=== PATIENT | male | born 1955 ===

== ENCOUNTER 2016-10-26 15:42 | Emergency (ER) | payer MEDICARE ==
[2016-10-26 15:42] VITALS: BMI 24.3
[2016-10-26 15:58] VITALS: RESP 18
[2016-10-26] MEDS ORDERED: Lidocaine 5% Patch TD STA (16:12)
[2016-10-26] MEDS ORDERED: Lidocaine 5% Patch TD ONE (16:20)
--- NOTE | 2016-10-26 17:18 | RAD ---
PROCEDURE: Radiographs of the Lumbar Spine. HISTORY: Left flank pain COMPARISON: CT abdomen and pelvis from 310 T 2016 FINDINGS: BONES: There is normal alignment of the lumbar vertebral bodies. Lumbar lordosis is maintained. Vertebral bodies are normal in height. There is no acute fracture, spondylolysis or spondylolisthesis. There is mild diffuse bone demineralization. DISC SPACES: There is mild multilevel degenerative disc disease with anterior osteophytes, reduced disc heights and multilevel facet arthropathy, worse at L5-S1. OTHER FINDINGS: There is a 6 mm calcification in the left mid abdomen at the level of the transverse process of L3 vertebral body IMPRESSION: 1. 6 mm calcification in the left mid abdomen could represent soft tissue calcification however ureteral cannot be entirely excluded. If there is a persistent clinical concern, a CT scan may be performed. 2. No acute fracture, spondylolysis or spondylolisthesis. Mild degenerative disc disease at L5-S1.
--- NOTE | 2016-10-26 17:56 | C.PDOC ---
History Of Present Illness 60 y/o male presents to ED with complaints of acute onsite back pain since last night. Pain is described as a shooting pain mainly on left side radiating to buttocks with a pain rate of 10/10 increased with movement. Patient followed up with PMD who recommended LS spine films and gave prescriptions but because of severe pain patient came to ED for evaluation. Patient denies LUCERO, N/V/D, hematuria, dysuria or any other complaints at this time. Time Seen by Provider: 10/26/16 16:04 Chief Complaint (Nursing): Back Pain History Per: Patient History/Exam Limitations: no limitations Onset/Duration Of Symptoms: Hrs Current Symptoms Are (Timing): Still Present Quality Of Discomfort: Dull Exacerbating Factor(s): Movement Past Medical History Reviewed: Historical Data, Nursing Documentation, Vital Signs Vital Signs: Last Vital Signs Temp 97.5 F L 10/26/16 15:50 Pulse 78 10/26/16 15:50 Resp 18 10/26/16 15:50 BP 146/76 10/26/16 15:50 Pulse Ox 99 10/26/16 18:01 - Medical History PMH: Dementia (early onset), Diabetes, Hypercholesterolemia, Hyperlipidemia Family History: States: Unknown Family Hx - Social History Hx Alcohol Use: Yes Hx Substance Use: No - Immunization History Hx Tetanus Toxoid Vaccination: No Hx Influenza Vaccination: Yes Hx Pneumococcal Vaccination: No Review Of Systems Except As Marked, All Systems Reviewed And Found Negative. Constitutional: Negative for: Fever, Chills Cardiovascular: Negative for: Chest Pain Gastrointestinal: Negative for: Nausea, Vomiting, Diarrhea Genitourinary: Negative for: Dysuria, Hematuria Skin: Negative for: Rash Neurological: Negative for: Headache Physical Exam - Physical Exam Appears: Non-toxic, No Acute Distress Skin: Normal Color, Warm Head: Atraumatic, Normacephalic Oral Mucosa: Moist Neck: Normal ROM Cardiovascular: Rhythm Regular, No Murmur Respiratory: Normal Breath Sounds, No Rales, No Rhonchi, No Wheezing Gastrointestinal/Abdominal: Soft, No Tenderness, No Guarding, No Rebound Back: No Decreased ROM, Paraspinal Tenderness (Left ) Extremity: Normal ROM, Capillary Refill (<2 seconds) Neurological/Psych: Oriented x3, Normal Speech Gait: Steady ED Course And Treatment O2 Sat by Pulse Oximetry: 99 (RA) Pulse Ox Interpretation: Normal Medical Decision Making Medical Decision Making: Patient treated with medication and Lidoderm patch, will be re-evaluated with possible D/C UA will be sent out to rule out renal colic Patient with 3+ blood in urine/. Will endorse to oncoming attending and request CT and labs. Disposition Counseled Patient/Family Regarding: Studies Performed, Diagnosis - Disposition Disposition Time: 18:30 Condition: STABLE - Clinical Impression Clinical Impression: Low back pain - PA / STUDY MANAGER / Resident Statement MD/DO has reviewed & agrees with the documentation as recorded. MD/DO has examined the patient and agrees with the treatment plan. - Scribe Statement The provider has reviewed the documentation as recorded by the Archie Christianson All medical record entries made by the Archie were at my direction and personally dictated by me. I have reviewed the chart and agree that the record accurately reflects my personal performance of the history, physical exam, medical decision making, and the department course for this patient. I have also personally directed, reviewed, and agree with the discharge instructions and disposition. Physician Patient Turnover Patient Signed Over To: Renato Briggs Handoff Comments: back pain, r/o renal colic
[2016-10-26 18:19] LABS: RBC URINE 21 /hpf (0-3); URINE BILIRUBIN NEGATIVE (NEGATIVE); URINE BLOOD 3+ (NEGATIVE); URINE COLOR Yellow (YELLOW); URINE GLUCOSE (UA) NORMAL (Normal); URINE KETONE 1+ mg/dL (NEGATIVE); URINE LEUKOCYTE ESTERASE NEG Leu/uL (Negative); URINE PROTEIN NEGATIVE (NEGATIVE); URINE UROBILINOGEN NORMAL mg/dL (0.2-1.0); WBC URINE 9 /hpf (0-5)
[2016-10-26] MEDS ORDERED: Sodium Chloride 0.9% 1,000 ML IV ONE (18:23)
[2016-10-26] MEDS ORDERED: Sodium Chloride 0.9% 1,000 ML ONE (19:11)
[2016-10-26] MEDS ORDERED: Morphine 4 MG/ML VIAL ONE (19:11)
[2016-10-26 19:12] LABS: BASO % 0.2 % (0.0-2.0); HEMATOCRIT 37.5 % (35.0-51.0); LYMPH # 1.1 K/uL (1.0-4.3); LYMPH % 7.7 % (20.0-40.0); MEAN CELL VOLUME 96.9 fL (80.0-94.0); MEAN CORPUSCULAR HEMOGLOBIN 33.3 pg (27.0-31.0); MEAN CORPUSCULAR HGB CONC 34.4 g/dL (33.0-37.0); MEAN PLATELET VOLUME 8.9 fL (7.2-11.7); MONO # 0.9 K/uL (0.0-0.8); MONO % 6.5 % (0.0-10.0); PLATELET COUNT 195 K/uL (130-400)
[2016-10-26 19:27] LABS: CHLORIDE 106 mmol/L (98-107)
[2016-10-26 19:28] LABS: SODIUM 138 mmol/L (132-148)
[2016-10-26 19:29] LABS: POTASSIUM 4.2 mmol/L (3.6-5.2); WHITE BLOOD COUNT 14.2 K/uL (4.8-10.8)
[2016-10-26 19:31] LABS: ALB/GLOB RATIO 1.1 (1.0-2.1); ALKALINE PHOSPHATASE 84 U/L (38-126); ALT/SGPT 25 U/L (21-72); AST/SGOT 28 U/L (17-59); BLOOD UREA NITROGEN 16 mg/dL (9-20); CARBON DIOXIDE 23 mmol/L (22-30); GFR AFRICAN-AMERICAN > 60; GLUCOSE,RANDOM 129 mg/dL (75-110); TOTAL PROTEIN 7.6 g/dL (6.3-8.3)
[2016-10-26 19:32] LABS: CALCIUM 8.9 mg/dl (8.6-10.4)
[2016-10-26 20:03] LABS: NEUTROPHIL 84 % (50-75); REACTIVE LYMPHOCYTES 3 % (0-0); TOTAL CELLS COUNTED 100
[2016-10-26 20:18] VITALS: O2SAT 98
[2016-10-26 21:00] VITALS: BP 148/85; PULSE 81; TEMP 97.9
--- NOTE | 2016-10-27 09:08 | CT ---
PROCEDURE: CT Abdomen and Pelvis without intravenous contrast HISTORY: Abdominal pain COMPARISON: 07/31/2015 TECHNIQUE: Technique. Contrast Dose: CT scan of the abdomen and pelvis was performed without administration of intravenous contrast. Oral contrast was not administered. Coronal and sagittal reformatted images were obtained. Radiation dose: Total exam DLP = 363.53 mGy-cm. This CT exam was performed using one or more of the following dose reduction techniques: Automated exposure control, adjustment of the mA and/or kV according to patient size, and/or use of iterative reconstruction technique. FINDINGS: LOWER THORAX: There is subsegmental atelectasis in the right lower lobe. The left lung base is clear. LIVER: The liver is normal in size. No gross lesion or ductal dilatation. GALLBLADDER AND BILE DUCTS: There are no calcified gallstones. PANCREAS: The pancreas is normal in size. No gross lesion or ductal dilatation. SPLEEN: Spleen is normal in size. ADRENALS: Unremarkable. No mass. KIDNEYS AND URETERS: In the right kidney is normal in size without hydronephrosis. There is a punctate nonobstructing stone in the right interpolar region. There is a 8 x 6 mm obstructing stone in the left proximal ureteral with resultant moderate hydronephrosis and moderate dilatation of the proximal ureteral, also noted is edema and enlargement of the left kidney and significant perinephric fat stranding. There is coarse calcification in the left lower pole which could represent calcification in a cyst or calyceal diverticulum. VASCULATURE: No aortic aneurysm. BOWEL: The small bowel loops are normal in caliber. There is moderate amount of stool in the colon. There is scattered colonic diverticulosis without CT evidence for acute diverticulitis. APPENDIX: Normal appendix. PERITONEUM: No free fluid. No free air. LYMPH NODES: No enlarged lymph nodes. BLADDER: Partially distended. REPRODUCTIVE: Unremarkable. BONES: No acute fracture. Diffuse bone demineralization and mild degenerative disc disease. OTHER FINDINGS: A right-sided ventriculoperitoneal shunt catheter terminates in the left hemipelvis. IMPRESSION: 1. Moderate left obstructive uropathy resulting from a 8 x 6 mm stone in the left proximal ureteral. 2. Punctate nonobstructing stone in the interpolar region of the right kidney. 3. Colonic diverticulosis without CT evidence for acute diverticulitis. A preliminary report was provided by [facility].
== END 2016-10-26 21:00 | disposition home or self-care (01) ==
LOC: C.ER 15:42
DX: N13.2 Hydronephrosis with renal and ureteral calculous obstruction (principal); M54.5 Low back pain
CPT/HCPCS: 72100; 74176; 80053; 81001; 85025; 96361; 96374; 99285; J2270; J7040

== ENCOUNTER 2016-10-30 12:47 | Day surgery (SDC) | payer MEDICARE ==
[2016-10-30 12:53] VITALS: BMI 25.5
[2016-10-30] MEDS ORDERED: Propofol 10 mg/ml Inj (20 ML) ONE ×3 (15:09→15:37)
[2016-10-30] MEDS ORDERED: Lactated Ringer's 1,000 ML IV ONE (15:10)
[2016-10-30] MEDS ORDERED: Ciprofloxacin 400mg/200ml D5W 400 MG/200 ML BAG IVPB ONE (15:12)
[2016-10-30] MEDS ORDERED: Iohexol 240 (50 ml) ONE (15:12)
[2016-10-30] MEDS ORDERED: HYDROmorphone 0.5 mg/0.5 ml ISec IVP PRN (15:46)
[2016-10-30 17:41] VITALS: BP 123/72; PULSE 88; RESP 20; TEMP 97.8; O2SAT 98
--- NOTE | 2016-10-30 19:33 | OP ---
PROCEDURE DATE: 10/30/2016 PREOPERATIVE DIAGNOSES: Acute left renal colic secondary to left obstructing ureteral calculus. POSTOPERATIVE DIAGNOSES: Acute left renal colic secondary to left obstructing ureteral calculus. PROCEDURE PERFORMED: Cystoscopy, left ureteroscopy, and double-J stent placement. DESCRIPTION OF PROCEDURE: Under general anesthesia, the patient was placed on the operating table in dorsal lithotomy position. The area of the groin was draped and prepped in a sterile manner. Using a short ureteroscope, I entered into the bladder atraumatically, identified the left ureteral orifice and over a floppy tip Glidewire, I advanced the ureteroscope to the level of the obstructing stone. It was in the middle portion of the ureter. Full length of the ureteroscope was in. The stone was very jagged and quite large. Appears to be almost 8 or 9 mm in size. At this time, realizing that t his is not going to be a stone for extraction, I then, under fluoroscopy, removed the ureteroscope, l eft the indwelling guidewire in place and over that guidewire, I placed a 6-Ghanaian multilength double -J stent. Once under good position fluoroscopically, then the instrumentation was removed. The yasmine ent then was taken from the operating room in good condition. Destinee Villalba MD cc: 48 TT: 10/30/2016 19:32:30 sarai
--- NOTE | 2016-10-31 08:55 | DS ---
This patient was admitted today at [facility] for elective J stent placement for a left ureteral calculus. The patient underwent the procedure well. In recovery room, he is stable. He will be di scharged home today. Follow up in my office tomorrow for future arrangements to be made at the [facility] for lithotripsy of left hydroureteronephrosis secondary to stone. Destinee Villalba MD cc: 48 TT: 10/31/2016 08:54:24 en
--- NOTE | 2016-11-01 09:12 | RAD ---
HISTORY: Left ureteral calculi COMPARISON: None TECHNIQUE: Total fluoroscopic time utilized during the procedure: 18.3 seconds ; 1852 mGy cm 2 FINDINGS: Submitted images from the current procedure: 2 Please refer to the physician's notes performing the procedure. IMPRESSION: Less than 1 hour fluoroscopic time utilized during performance of the procedure
== END 2016-10-30 18:05 | disposition home or self-care (01) ==
LOC: C.SDS 12:47
PROVIDERS: ATTEND Urology
DX: N20.0 Calculus of kidney (principal); N20.1 Calculus of ureter
CPT/HCPCS: 52332; 76000; 82948; C1769; C2617; J7120

== ENCOUNTER 2018-03-21 06:15 | Inpatient (IN) | payer MEDICARE ==
[2018-03-21 06:15] VITALS: BMI 25.0
[2018-03-21] MEDS ORDERED: Aspirin 325 mg EC Tablets PO STA (06:46)
--- NOTE | 2018-03-21 06:47 | C.PDOC ---
History Of Present Illness 62 year old male presents to the ER with a complaint of sternal chest pain that woke him from sleep. Patient states the pain is digitally reproducible, denies any trauma or heavy lifting the past 3 days. 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 Patient has been here in the past for ETOH abuse before, claims he drinks 2 beers a night. Denies fever, chills, or SOB. <Collin Irving - Last Filed: 03/21/18 06:53> History Per: Patient History/Exam Limitations: no limitations Onset/Duration Of Symptoms: Days (3) Current Symptoms Are (Timing): Still Present Associated Symptoms: denies: Nausea, Dyspnea, Diaphoresis, Syncope Modifying Factors: None Exacerbating Factors: Other (Digitally reproducible) Alleviating Factors: None Recent travel outside of the [place]: No <Collin Irving - Last Filed: 03/21/18 06:53> <Tuan Gibbs - Last Filed: 03/21/18 08:13> Time Seen by Provider: 03/21/18 06:31 Chief Complaint (Nursing): Chest Pain Past Medical History Reviewed: Historical Data, Nursing Documentation, Vital Signs Vital Signs: Last Vital Signs Temp 97.6 F 03/21/18 06:19 Pulse 88 03/21/18 06:19 Resp 20 03/21/18 06:19 BP 169/103 H 03/21/18 06:19 Pulse Ox 100 03/21/18 06:19 - Medical History PMH: Dementia (early onset), Diabetes, HTN, Hypercholesterolemia, Hyperlipidemia, Kidney Stones Denies: Chronic Kidney Disease Family History: States: Unknown Family Hx - Social History Hx Alcohol Use: Yes Hx Substance Use: No - Immunization History Hx Tetanus Toxoid Vaccination: No Hx Influenza Vaccination: Yes Hx Pneumococcal Vaccination: No <Collin Irving - Last Filed: 03/21/18 06:53> Vital Signs: Last Vital Signs Temp 97.6 F 03/21/18 06:19 Pulse 88 03/21/18 06:19 Resp 20 03/21/18 06:19 BP 169/103 H 03/21/18 06:19 Pulse Ox 100 03/21/18 06:53 <Tuan Gibbs - Last Filed: 03/21/18 08:13> Review Of Systems Constitutional: Negative for: Fever, Chills Cardiovascular: Positive for: Chest Pain. Negative for: Palpitations Respiratory: Negative for: Cough, Shortness of Breath Gastrointestinal: Negative for: Nausea, Vomiting Neurological: Negative for: Weakness, Numbness <Collin Irving Yaniv Last Filed: 03/21/18 06:53> Physical Exam - Physical Exam Appears: Non-toxic, Other (Odd affect) Skin: Normal Color, Warm, Dry Head: Atraumatic, Normacephalic Eye(s): bilateral: Normal Inspection Oral Mucosa: Moist Neck: Normal, No Midline Cervical Tenderness, No Paracervical Tenderness, Supple Chest: Tenderness (Digitally reproducible bilateral sternal areas) Cardiovascular: Rhythm Regular Respiratory: Normal Breath Sounds, No Rales, No Rhonchi, No Wheezing Gastrointestinal/Abdominal: Soft, No Tenderness Back: No CVA Tenderness Extremity: Normal ROM (x4) Neurological/Psych: Oriented x3, Normal Speech Gait: Steady <Collin Irving Yaniv Last Filed: 03/21/18 06:53> ED Course And Treatment - Laboratory Results Result Diagrams: 03/21/18 06:48 ECG: Interpreted By Me ECG Rhythm: Sinus Rhythm ECG Interpretation: Normal Rate From EC O2 Sat by Pulse Oximetry: 100 (Room air) Pulse Ox Interpretation: Normal Progress Note: ice pack, toradol <Collin Irving Last Filed: 03/21/18 06:53> - Laboratory Results Result Diagrams: 03/21/18 06:48 03/21/18 07:00 <Tuan Gibbs - Last Filed: 03/21/18 08:13> Medical Decision Making Medical Decision Making: normal ekg cp is digitally reproducable ice pack and toradol IV ? anxiety vs etoh w/d librium PO given ? cognitive disorder, R craniotomy/shunt <Collin Irving Last Filed: 03/21/18 06:53> Medical Decision Makin yr old male w/ no cardiac RF p/w chest pain reproducible to palpation. Pt notes etoh use, no signs of withdrawal on my exam. Cognitively pt is AOx3. Heart Score: Age: 1 RF: 2 EK Story: 0 Troponin: pending EK, NSR, No stemi XR: Unremarkable Pending troponin 2002 cp started at 0300 per pt. Given no previous Echo / stress will seek obs for likely w/u. 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 iSdhu: given borderline heart score accepts admission to obs <Tuan Gibbs - Last Filed: 03/21/18 08:13> Disposition <Collin Irving - Last Filed: 03/21/18 06:53> - Disposition Disposition Time: 08:12 <Tuan Gibbs - Last Filed: 03/21/18 08:13> - Disposition Condition: GOOD Forms: [employer] (Frisian) - Clinical Impression Clinical Impression: Chest pain - Scribe Statement The provider has reviewed the documentation as recorded by the Scribe Greg Jacques All medical record entries made by the Scribe were at my direction and pers onally dictated by me. I have reviewed the chart and agree that the record accurately reflects my personal performance of the history, physical exam, medical decision making, and the department course for this patient. I have also personally directed, reviewed, and agree with the discharge instructions and disposition. <Collin Irving - Last Filed: 03/21/18 06:53> Physician Patient Turnover Patient Signed Over To: Tuan Gibbs Handoff Comments: f/u w/u and dispo appropriately <Collin Irving - Last Filed: 03/21/18 06:53>
[2018-03-21 06:51] LABS: BASO % 0.3 % (0.0-2.0); EOS # 0.1 K/uL (0.0-0.7); LYMPH # 0.9 K/uL (1.0-4.3); LYMPH % 10.5 % (20.0-40.0); MEAN CELL VOLUME 100.5 fL (80.0-94.0); MEAN CORPUSCULAR HEMOGLOBIN 34.9 pg (27.0-31.0); MEAN CORPUSCULAR HGB CONC 34.7 g/dL (33.0-37.0); MEAN PLATELET VOLUME 9.4 fL (7.2-11.7); MONO # 0.5 K/uL (0.0-0.8); MONO % 5.4 % (0.0-10.0); NEUT % 82.8 % (50.0-75.0); RBC 3.73 Mil/uL (4.40-5.90); RED CELL DISTRIBUTION WIDTH 13.3 % (11.5-14.5); WHITE BLOOD COUNT 8.5 K/uL (4.8-10.8)
[2018-03-21 07:19] LABS: ALB/GLOB RATIO 1.2 (1.0-2.1); ALBUMIN 3.4 g/dL (3.5-5.0); ALT/SGPT 24 U/L (21-72); AST/SGOT 22 U/L (17-59); BLOOD UREA NITROGEN 14 mg/dL (9-20); CALCIUM 7.7 mg/dl (8.6-10.4); GFR NON-AFRICAN AMERICAN > 60
[2018-03-21 07:31] LABS: B-TYPE NATRIURETIC PEPTIDE 298 pg/mL (0-900)
--- NOTE | 2018-03-21 08:59 | RAD ---
Date of service: 03/21/2018 PROCEDURE: CHEST RADIOGRAPH, 1 VIEW HISTORY: SOB COMPARISON: None available. FINDINGS: LUNGS: The lungs are well inflated and clear. PLEURA: No pneumothorax or pleural effusion. CARDIOVASCULAR: The heart is normal in size. No aortic atherosclerotic calcifications present. OSSEOUS STRUCTURES: Within normal limits for the patient's age. VISUALIZED UPPER ABDOMEN: Normal. OTHER FINDINGS: Right-sided ventriculoperitoneal shunt catheter overlies the lower neck and hemithorax. IMPRESSION: No active pulmonary disease.
[2018-03-21] MEDS ORDERED: Pneumococcal 23-Valent Vaccine IM ONE (10:00)
[2018-03-21 13:04] LABS: CK-MB 11.4 ng/mL (0.0-3.38)
[2018-03-21] MEDS: (Novolin R) Insulin Human Regular 100 units/ml vial SC SCH ×3 (13:06→21:42)
[2018-03-21 13:44] LABS: TROPONIN I 0.759 ng/mL (0.00-0.120)
[2018-03-21 16:30] LABS: PROTHROMBIN TIME 10.9 SECONDS (9.7-12.2)
[2018-03-21] MEDS: Heparin25000 units/250ml 1/2NS 25,000 UNITS/250 ML BAG IV PRN (16:46)
[2018-03-21 21:12] LABS: CK-MB 35.8 ng/mL (0.0-3.38); TROPONIN I 7.24 ng/mL (0.00-0.120)
--- NOTE | 2018-03-21 21:56 | CP.PCM.HP ---
Past Patient History - Past Medical History & Family History Past Medical History?: Yes - Past Social History Smoking Status: Never Smoked - CARDIAC Hx Hypercholesterolemia: Yes Hx Hypertension: Yes - PULMONARY Hx Respiratory Disorders: No - NEUROLOGICAL Hx Dementia: Yes (early onset) - HEENT Hx HEENT Problems: No - RENAL Hx Chronic Kidney Disease: No Hx Kidney Stones: Yes - ENDOCRINE/METABOLIC Hx Endocrine Disorders: Yes Hx Diabetes Mellitus Type 2: Yes - HEMATOLOGICAL/ONCOLOGICAL Hx Blood Disorders: No - INTEGUMENTARY Hx Dermatological Problems: No - MUSCULOSKELETAL/RHEUMATOLOGICAL Hx Musculoskeletal Disorders: No - GASTROINTESTINAL Hx Gastrointestinal Disorders: No - GENITOURINARY/GYNECOLOGICAL Hx Genitourinary Disorders: No - PSYCHIATRIC Hx Substance Use: No - SURGICAL HISTORY Hx Surgeries: Yes Other/Comment: 2009-shunt brain,november-2016 cystoscopy,stent placement with kidney stones,nephrolithiasis - ANESTHESIA Hx Anesthesia: Yes Hx Anesthesia Reactions: No Hx Malignant Hyperthermia: No Meds Allergies/Adverse Reactions: Allergies Allergy/AdvReac Type Severity Reaction Status Date / Time amoxicillin [From Augmentin] Allergy Verified 03/21/18 06:25 clavulanic acid Allergy Verified 03/21/18 06:25 [From Augmentin] Tetracyclines Allergy Verified 03/21/18 06:25 Results - Vital Signs Recent Vital Signs: Last Vital Signs Temp 97.5 F L 03/21/18 15:10 Pulse 67 03/21/18 17:02 Resp 20 03/21/18 15:10 BP 160/90 H 03/21/18 18:01 Pulse Ox 98 03/21/18 17:02 - Labs Result Diagrams: 03/21/18 06:48 03/21/18 07:00 Labs: Laboratory Results - last 24 hr 03/21/18 03/21/18 03/21/18 06:25 06:48 07:00 WBC 8.5 RBC 3.73 L Hgb 13.0 Hct 37.5 MCV 100.5 H D MCH 34.9 H MCHC 34.7 RDW 13.3 Plt Count 190 MPV 9.4 Neut % (Auto) 82.8 H Lymph % (Auto) 10.5 L [place] % (Auto) 5.4 Eos % (Auto) 1.0 Baso % (Auto) 0.3 Neut # (Auto) 7.0 Lymph # (Auto) 0.9 L [place] # (Auto) 0.5 Eos # (Auto) 0.1 Baso # (Auto) 0.0 PT INR APTT Sodium 138 Potassium 4.1 Chloride 107 Carbon Dioxide 25 Anion Gap 9 L BUN 14 Creatinine 0.5 L Est GFR ( Amer) > 60 Est GFR (Non-Af Amer) > 60 POC Glucose (mg/dL) 166 H Random Glucose 157 H Hemoglobin A1c Calcium 7.7 L Total Bilirubin 0.3 AST 22 ALT 24 Alkaline Phosphatase 68 Total Creatine Kinase CK-MB (Mass) Troponin I 0.0550 NT-Pro-B Natriuret Pep 298 Total Protein 6.3 Albumin 3.4 L Globulin 2.9 Albumin/Globulin Ratio 1.2 Triglycerides Cholesterol LDL Cholesterol Direct HDL Cholesterol Alcohol, Quantitative < 10 03/21/18 03/21/18 03/21/18 11:37 12:14 12:14 WBC RBC Hgb Hct MCV MCH MCHC RDW Plt Count MPV Neut % (Auto) Lymph % (Auto) [place] % (Auto) Eos % (Auto) Baso % (Auto) Neut # (Auto) Lymph # (Auto) [place] # (Auto) Eos # (Auto) Baso # (Auto) PT INR APTT Sodium Potassium Chloride Carbon Dioxide Anion Gap BUN Creatinine Est GFR ( Amer) Est GFR (Non-Af Amer) POC Glucose (mg/dL) 194 H Random Glucose Hemoglobin A1c 6.6 H Calcium Total Bilirubin AST ALT Alkaline Phosphatase Total Creatine Kinase 156 CK-MB (Mass) 11.4 H Troponin I 0.7590 H* NT-Pro-B Natriuret Pep Total Protein Albumin Globulin Albumin/Globulin Ratio Triglycerides 248 H Cholesterol 235 H LDL Cholesterol Direct 154 H HDL Cholesterol 56 Alcohol, Quantitative 03/21/18 03/21/18 03/21/18 16:12 16:19 20:05 WBC RBC Hgb Hct MCV MCH MCHC RDW Plt Count MPV Neut % (Auto) Lymph % (Auto) [place] % (Auto) Eos % (Auto) Baso % (Auto) Neut # (Auto) Lymph # (Auto) [place] # (Auto) Eos # (Auto) Baso # (Auto) PT 10.9 INR 1.0 APTT 27 Sodium Potassium Chloride Carbon Dioxide Anion Gap BUN Creatinine Est GFR ( Amer) Est GFR (Non-Af Amer) POC Glucose (mg/dL) 116 H Random Glucose Hemoglobin A1c Calcium Total Bilirubin AST ALT Alkaline Phosphatase Total Creatine Kinase 379 H CK-MB (Mass) 35.8 H Troponin I 7.2400 H* NT-Pro-B Natriuret Pep Total Protein Albumin Globulin Albumin/Globulin Ratio Triglycerides Cholesterol LDL Cholesterol Direct HDL Cholesterol Alcohol, Quantitative 03/21/18 21:21 WBC RBC Hgb Hct MCV MCH MCHC RDW Plt Count MPV Neut % (Auto) Lymph % (Auto) [place] % (Auto) Eos % (Auto) Baso % (Auto) Neut # (Auto) Lymph # (Auto) [place] # (Auto) Eos # (Auto) Baso # (Auto) PT INR APTT Sodium Potassium Chloride Carbon Dioxide Anion Gap BUN Creatinine Est GFR ( Amer) Est GFR (Non-Af Amer) POC Glucose (mg/dL) 153 H Random Glucose Hemoglobin A1c Calcium Total Bilirubin AST ALT Alkaline Phosphatase Total Creatine Kinase CK-MB (Mass) Troponin I NT-Pro-B Natriuret Pep Total Protein Albumin Globulin Albumin/Globulin Ratio Triglycerides Cholesterol LDL Cholesterol Direct HDL Cholesterol Alcohol, Quantitative
--- NOTE | 2018-03-21 22:35 | PCM.RRT ---
<KaylynnTana Oswald - Last Filed: 03/21/18 22:45> FMD TEACHER Nurses Assessment - Situation Date: 03/21/18 Time FMD TEACHER was called: 21:18 FMD TEACHER Responder Arrival Time:: 21:19 FMD TEACHER Location:: Med/Surg Room Number: 571 FMD TEACHER Reason for Call: Chest Pain FMD TEACHER Called By: RN - IV IV Inserted during FMD TEACHER?: No - Respiratory FMD TEACHER Delivery Method: Nasal Cannula @L/min Oxygen Flow Rate: 2 Received Nebulizer Treatments: No Was the Patient Ventilated with Bag/Mask 100% O2?: No Secretions Suctioned?: No Was the Patient Intubated?: No Was the Patient Placed on a Ventilator?: No - Medication Medications Administered During FMD TEACHER: none - Diagnostic Test Ordered EKG: Yes Chest X-Ray: No CT Scan: No CPR started during FMD TEACHER?: No - Vital Signs Vital Signs: Rapid Response Vital Sign Blood Pressure 160/81 Pulse Rate 89 Respiratory Rate 18 Oxygen Saturation 97 - [place] Coma Scale Coma Scale Eye Opening: Spontaneous Coma Scale Motor: Obeys Commands Movement Coma Scale Verbal: Oriented Coma Scale Total: 15 - Time FMD TEACHER Ended Time FMD TEACHER Ended: 21:30 - Recommendations Notifications: Attending Physician, Consultations - Respiratory Oxygen Delivery Method: Nasal Cannula @L/min Oxygen Flow Rate: 2 - Constitutional Appears: Non-toxic, No Acute Distress - Head Head Exam: ATRAUMATIC, NORMOCEPHALIC - Eyes Eye Exam: EOMI, PERRL - Respiratory Exam Respiratory Exam: Clear to Ausculation Bilateral, NORMAL BREATHING PATTERN. absent: Rales, Rhonchi, Wheezes - Cardiovascular Exam Cardiovascular Exam: Irregular Rhythm, REGULAR RHYTHM, +S1, +S2 - GI/Abdominal Exam GI & Abdominal Exam: Soft, Normal Bowel Sounds. absent: Tenderness - Neurological Exam Neurological Exam: Alert, Awake, Oriented x3 - Extremities Exam Extremities Exam: Full ROM, Normal Capillary Refill, Normal Inspection Plan - Assessment of Findings&Treatment Plan FMD TEACHER called by nursing per Dr. Medeiros via telephone @ 2117 for elevated CHERIE: 0.759->7.42. Patient was already on heparin drip, beta clifton, ASA, statin. Repeat EKG was stable from previous. Discussed with Dr. Van, button breaker operator; will transfer to ICU per Dr. Medeiros. For cardiac cath on 03/23. FMD TEACHER ended 2125. <Anguiano,Adrian J - Last Filed: 03/22/18 02:23> FMD TEACHER Nurses Assessment - Vital Signs Vital Signs: Rapid Response Vital Sign Blood Pressure 160/81 Pulse Rate 89 Respiratory Rate 18 Oxygen Saturation 97 Attending/Attestation - Attestation I have personally seen and examined this patient.: Yes I have fully participated in the care of the patient.: Yes I have reviewed all pertinent clinical information, including history, physical exam and plan: Yes Notes (Text): 03/22/18 02:20 This patient was seen and examined at the time of the FMD TEACHER with resident Dr. Chaidez. Troponin elevation. Cardiology Dr. Medeiros was made aware. Heparin Drip was already running at the time of FMD TEACHER. Patient resting comfortably and complained of substernal chest pain, nonradiating, and unable to describe the pain to me. NO associated SOB or paresthesias. Dr. Chaidez spoke with Dr. Van covering the ICU and patient to be transferred to the ICU for closer monitoring. Informed by patient Nurse that Dr. Medeiros is planning for Cardiac Catheterization for this Saturday03/24/18. Patient was made aware and procedure explained to him and he expressed understanding. Adrian Anguiano D.O.
[2018-03-21] MEDS ORDERED: Nitroglycerin 2% Ointment Foilpak UD TOP STA (23:12)
--- NOTE | 2018-03-21 23:36 | CP.PCM.CON ---
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 This morning he came with pain 9-10, with gradually improved to 3-4 in the hospital and the troponins gradually sarah beth. 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 Patient already on ASA, plavix, heparin drip, statin, and betablocker. Patient's discomfort 2-3 out of 10. EKG no acute ST-T changes. 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 Family Mom of [place] age 70, father, had heart issues, on brother had CO but has h/o smoking Social works intermittently, denies smoking, illicit drugs, drinks beers 10-12 oz 2 beers 3-4 times/wk Meds reviewed Review of Systems - Review of Systems All systems: reviewed and no additional remarkable complaints except (HPI) Past Patient History - Past Medical History & Family History Past Medical History?: Yes - Past Social History Smoking Status: Never Smoked Alcohol: < 2 Drinks/Day Home Situation {Lives}: With Family - CARDIAC Hx Hypercholesterolemia: Yes Hx Hypertension: Yes - PULMONARY Hx Respiratory Disorders: No - NEUROLOGICAL Hx Dementia: Yes (early onset) - HEENT Hx HEENT Problems: No - RENAL Hx Chronic Kidney Disease: No Hx Kidney Stones: Yes - ENDOCRINE/METABOLIC Hx Endocrine Disorders: Yes Hx Diabetes Mellitus Type 2: Yes - HEMATOLOGICAL/ONCOLOGICAL Hx Blood Disorders: No - INTEGUMENTARY Hx Dermatological Problems: No - MUSCULOSKELETAL/RHEUMATOLOGICAL Hx Musculoskeletal Disorders: No - GASTROINTESTINAL Hx Gastrointestinal Disorders: No - GENITOURINARY/GYNECOLOGICAL Hx Genitourinary Disorders: No - PSYCHIATRIC Hx Substance Use: No - SURGICAL HISTORY Hx Surgeries: Yes Other/Comment: 2009-shunt brain,november-2017 cystoscopy,stent placement with kidney stones,nephrolithiasis - ANESTHESIA Hx Anesthesia: Yes Hx Anesthesia Reactions: No Hx Malignant Hyperthermia: No Meds Allergies/Adverse Reactions: Allergies Allergy/AdvReac Type Severity Reaction Status Date / Time amoxicillin [From Augmentin] Allergy Verified 03/21/18 06:25 clavulanic acid Allergy Verified 03/21/18 06:25 [From Augmentin] Tetracyclines Allergy Verified 03/21/18 06:25 - Medications Medications: Current Medications Aspirin (Ecotrin) 81 mg PO DAILY [facility] Clopidogrel Bisulfate (Plavix) 75 mg PO DAILY [facility] Docusate Sodium (Colace) 100 mg PO BID [facility] Last Admin: 03/21/18 17:39 Dose: 100 mg Donepezil HCl (Aricept) 10 mg PO DAILY [facility] Glipizide (Glucotrol) 10 mg PO ACB [facility] Heparin Sodium/Sodium Chloride (Heparin 31634 Units/250ml 1/2 Normal Saline) 25,000 units in 250 mls @ 8.981 mls/hr IV .Q24H PRN; Protocol PRN Reason: PROTOCOL Last Admin: 03/21/18 16:46 Dose: 12 units/kg/hr, 8.981 mls/hr Insulin Human Regular (Novolin R) 0 unit SC ACHS [facility]; Protocol Last Admin: 03/21/18 21:42 Dose: Not Given Lamotrigine (Lamictal) 25 mg PO BID [facility] Last Admin: 03/21/18 17:39 Dose: 25 mg Memantine (Namenda) 10 mg PO BID [facility] Metformin HCl (Glucophage) 1,000 mg PO BIDCC [facility] Last Admin: 03/21/18 17:39 Dose: 1,000 mg Metoprolol Tartrate (Lopressor) 12.5 mg PO BID [facility] Last Admin: 03/21/18 17:39 Dose: 12.5 mg Rosuvastatin Calcium (Crestor) 20 mg PO HS [facility] Last Admin: 03/21/18 21:53 Dose: 20 mg Physical Exam - Additional Findings Additional findings: * HEENT JOHAN, shunt could be felt on the right side with prior swift of marty holes * Neck Supple * Chest Clear * CVS Regular, no gallop or rub * PA soft, nt bs present * Ext no edema, varicose veins on the right knee, left leg * Results - Vital Signs Recent Vital Signs: Last Vital Signs Temp 97.5 F L 03/21/18 15:10 Pulse 67 03/21/18 17:02 Resp 20 03/21/18 15:10 BP 160/90 H 03/21/18 18:01 Pulse Ox 98 03/21/18 17:02 - Labs Result Diagrams: 03/21/18 06:48 03/21/18 07:00 Labs: Laboratory Results - last 24 hr 03/21/18 03/21/18 03/21/18 06:25 06:48 07:00 WBC 8.5 RBC 3.73 L Hgb 13.0 Hct 37.5 MCV 100.5 H D MCH 34.9 H MCHC 34.7 RDW 13.3 Plt Count 190 MPV 9.4 Neut % (Auto) 82.8 H Lymph % (Auto) 10.5 L [place] % (Auto) 5.4 Eos % (Auto) 1.0 Baso % (Auto) 0.3 Neut # (Auto) 7.0 Lymph # (Auto) 0.9 L [place] # (Auto) 0.5 Eos # (Auto) 0.1 Baso # (Auto) 0.0 PT INR APTT Sodium 138 Potassium 4.1 Chloride 107 Carbon Dioxide 25 Anion Gap 9 L BUN 14 Creatinine 0.5 L Est GFR ( Amer) > 60 Est GFR (Non-Af Amer) > 60 POC Glucose (mg/dL) 166 H Random Glucose 157 H Hemoglobin A1c Calcium 7.7 L Total Bilirubin 0.3 AST 22 ALT 24 Alkaline Phosphatase 68 Total Creatine Kinase CK-MB (Mass) Troponin I 0.0550 NT-Pro-B Natriuret Pep 298 Total Protein 6.3 Albumin 3.4 L Globulin 2.9 Albumin/Globulin Ratio 1.2 Triglycerides Cholesterol LDL Cholesterol Direct HDL Cholesterol Alcohol, Quantitative < 10 03/21/18 03/21/18 03/21/18 11:37 12:14 12:14 WBC RBC Hgb Hct MCV MCH MCHC RDW Plt Count MPV Neut % (Auto) Lymph % (Auto) [place] % (Auto) Eos % (Auto) Baso % (Auto) Neut # (Auto) Lymph # (Auto) [place] # (Auto) Eos # (Auto) Baso # (Auto) PT INR APTT Sodium Potassium Chloride Carbon Dioxide Anion Gap BUN Creatinine Est GFR ( Amer) Est GFR (Non-Af Amer) POC Glucose (mg/dL) 194 H Random Glucose Hemoglobin A1c 6.6 H Calcium Total Bilirubin AST ALT Alkaline Phosphatase Total Creatine Kinase 156 CK-MB (Mass) 11.4 H Troponin I 0.7590 H* NT-Pro-B Natriuret Pep Total Protein Albumin Globulin Albumin/Globulin Ratio Triglycerides 248 H Cholesterol 235 H LDL Cholesterol Direct 154 H HDL Cholesterol 56 Alcohol, Quantitative 03/21/18 03/21/18 03/21/18 16:12 16:19 20:05 WBC RBC Hgb Hct MCV MCH MCHC RDW Plt Count MPV Neut % (Auto) Lymph % (Auto) [place] % (Auto) Eos % (Auto) Baso % (Auto) Neut # (Auto) Lymph # (Auto) [place] # (Auto) Eos # (Auto) Baso # (Auto) PT 10.9 INR 1.0 APTT 27 Sodium Potassium Chloride Carbon Dioxide Anion Gap BUN Creatinine Est GFR ( Amer) Est GFR (Non-Af Amer) POC Glucose (mg/dL) 116 H Random Glucose Hemoglobin A1c Calcium Total Bilirubin AST ALT Alkaline Phosphatase Total Creatine Kinase 379 H CK-MB (Mass) 35.8 H Troponin I 7.2400 H* NT-Pro-B Natriuret Pep Total Protein Albumin Globulin Albumin/Globulin Ratio Triglycerides Cholesterol LDL Cholesterol Direct HDL Cholesterol Alcohol, Quantitative 03/21/18 21:21 WBC RBC Hgb Hct MCV MCH MCHC RDW Plt Count MPV Neut % (Auto) Lymph % (Auto) [place] % (Auto) Eos % (Auto) Baso % (Auto) Neut # (Auto) Lymph # (Auto) [place] # (Auto) Eos # (Auto) Baso # (Auto) PT INR APTT Sodium Potassium Chloride Carbon Dioxide Anion Gap BUN Creatinine Est GFR ( Amer) Est GFR (Non-Af Amer) POC Glucose (mg/dL) 153 H Random Glucose Hemoglobin A1c Calcium Total Bilirubin AST ALT Alkaline Phosphatase Total Creatine Kinase CK-MB (Mass) Troponin I NT-Pro-B Natriuret Pep Total Protein Albumin Globulin Albumin/Globulin Ratio Triglycerides Cholesterol LDL Cholesterol Direct HDL Cholesterol Alcohol, Quantitative Assessment & Plan - Assessment and Plan (Free Text) Assessment: * NSTEMI * NIDDM * NPH, 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 * Home meds * Maintain euglycemia * See orders for detail.
[2018-03-21 23:51] LABS: PROTHROMBIN TIME 11.1 SECONDS (9.7-12.2)
--- NOTE | 2018-03-22 00:02 | CON ---
DATE: 03/21/2018 CARDIOLOGY CONSULTATION HISTORY OF PRESENT ILLNESS: This is a 62-year-old white male, came to the emergency room with history of severe retrosternal chest pain, which woke him up from sleep. The patient denies having nausea or vomiting. The patient states the pain is digitally reproducible. Denies diaphoresis. No dizziness. 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 The patient had been here in the past for EtOH abuse before. The patient drinks two beers every night. Denies having any fever, chills, or shortness of breath. PAST MEDICAL HISTORY: History of dementia, diabetes, hypertension, hyperlipidemia, chronic renal disease, EtOH. The patient has a shunt from brain to the abdominal wall. ALLERGIES: THE PATIENT IS ALLERGIC TO AMOXICILLIN AND TETRACYCLINE. MEDICATIONS: The patient's medications are reviewed by me. FAMILY HISTORY: No known inherited disease. SOCIAL HISTORY: Drinks beer. No smoke. No illicit drug use. REVIEW OF SYSTEMS: CARDIOVASCULAR SYSTEM: Positive for chest pain. RESPIRATORY SYSTEM: Negative for shortness of breath. GASTROINTESTINAL SYSTEM: Negative for nausea, vomiting, or abdominal pain. CENTRAL NERVOUS SYSTEM: No focal neurological complaints offered. No edema of the legs. PHYSICAL EXAMINATION: GENERAL: This is a 62-year-old white male, alert and oriented, comfortable. VITAL SIGNS: Temperature 97.6, pulse 88, respirations 20, blood pressure 169/103 mmHg, pulse oxygen 100% on room air. HEENT: Normal. NECK: JVP is flat. Carotids, no bruit. LUNGS: No rales. No wheezing. HEART: S1 and S2 normal. No gallop. No murmur. ABDOMEN: Soft, nontender. No organomegaly. CENTRAL NERVOUS SYSTEM: No focal neurological deficit. No edema of the legs. LABORATORY DATA: On admission, BMP is within normal limits. CBC is within normal limits. EKG is normal sinus rhythm. No acute ST-T changes. Troponin first set is negative. IMPRESSION: 1. Acute coronary syndrome. 2. Hypertension. 3. Chronic ethyl alcohol. PLAN: Suggest, agree with present management. We will get echocardiogram done. We will continue all the medications. Other workup as needed. If troponin is negative, then the patient can be discharge and have cardiac evaluation done as an outpatient. Cirilo Anguiano MD [facility] # [id number]
--- NOTE | 2018-03-22 05:40 | HP ---
CHIEF COMPLAINT: Chest pain x1 day. HISTORY OF PRESENT ILLNESS: This is a 62-year-old male, nonsmoker with a history of diabetes, hypertension, and hyperlipidemia. He is compliant with his diet, medication, and followup. According to him, several weeks ago he had a chest pain , radiating to bilateral arms, associated with diaphoresis and dizziness. The patient did not seek any medical attention. He was seen by an customer account specialist who referred him to Cardiology. He decided not to see Cardiology. Then a few days ago, he was walking in the park and he developed substernal pressure-like chest pain, radiating to bilateral arms, associated with diaphoresis and dizziness, relieved by rest and he ignored it till this morning he woke up around 4 a.m. with substernal pressure. This was radiating to bilateral arms, associated with diaphoresis, dizziness, and weakness. The patient denies any cough, sore throat, runny nose. He denies any nausea or vomiting. He denies any dyspepsia. He denies any polyuria, polydipsia, or polyphagia. He denies any history of hematuria or pyuria. PAST MEDICAL HISTORY: Diabetes, hypertension, and hyperlipidemia. SOCIAL HISTORY: Nonsmoker, non-ETOH user. MEDICATIONS: At home, he is taking Lamictal, glipizide, Aricept, Colace, metformin, and Namenda. PHYSICAL EXAMINATION: GENERAL: An elderly male in no acute distress. He still has some chest pressure. VITAL SIGNS: BP 160/81, pulse 89, respiratory rate 18, and temperature 98. SKIN: Flush. No bruises. No purpura. No petechiae. HEENT: Atraumatic and normocephalic. Negative pallor. Negative jaundice. Extraocular movements are intact. NECK: Supple. No JVD. No lymph node. No thyromegaly. No carotid bruits. CHEST WALL: Bilateral symmetrical expansion. LUNGS: Clear. CARDIOVASCULAR SYSTEM: S1 and S2, regular. No heave. No thrill. ABDOMEN: Soft and nontender. Bowel sounds are positive. RECTAL: Enlarged prostate. EXTREMITIES: No clubbing, cyanosis, or edema. CENTRAL NERVOUS SYSTEM: Awake, alert, and oriented x3. ASSESSMENT: 1. Unstable angina, rule out myocardial infarction. 2. Diabetes. 3. Hypertension. 4. Hyperlipidemia. PLAN: Admit. Detailed orders written. The patient is on heparin drip, status post Plavix. Continue current medications. Patricio Sidhu MD
[2018-03-22 06:10] LABS: BASO % 0.3 % (0.0-2.0); EOS # 0.1 K/uL (0.0-0.7); EOS % 1.5 % (0.0-4.0); HEMOGLOBIN 12.9 g/dL (12.0-18.0); LYMPH # 1.1 K/uL (1.0-4.3); LYMPH % 14.6 % (20.0-40.0); MEAN CELL VOLUME 99.6 fL (80.0-94.0); MEAN CORPUSCULAR HEMOGLOBIN 34.7 pg (27.0-31.0); MEAN CORPUSCULAR HGB CONC 34.8 g/dL (33.0-37.0); MEAN PLATELET VOLUME 9.6 fL (7.2-11.7); MONO # 0.6 K/uL (0.0-0.8); MONO % 7.9 % (0.0-10.0); NEUT # 5.5 K/uL (1.8-7.0); NEUT % 75.7 % (50.0-75.0); RBC 3.71 Mil/uL (4.40-5.90); RED CELL DISTRIBUTION WIDTH 13.4 % (11.5-14.5); WHITE BLOOD COUNT 7.3 K/uL (4.8-10.8)
[2018-03-22 06:29] LABS: ALB/GLOB RATIO 1.1 (1.0-2.1); ALBUMIN 3.6 g/dL (3.5-5.0); ALT/SGPT 27 U/L (21-72); AST/SGOT 86 U/L (17-59); BLOOD UREA NITROGEN 16 mg/dL (9-20); CALCIUM 8.3 mg/dl (8.6-10.4); GFR NON-AFRICAN AMERICAN > 60
[2018-03-22 06:40] LABS: CK-MB 21.4 ng/mL (0.0-3.38)
[2018-03-22] MEDS: (Novolin R) Insulin Human Regular 100 units/ml vial SC SCH ×4 (07:43→21:26)
--- NOTE | 2018-03-22 08:37 | CP.PCM.CON ---
History of Present Illness - History of Present Illness History of Present Illness: 62 M with h/o NPH, s/p right side REVENUE LIAISON shunt, h/o NIDDM, gait abnormalities form NPH, poor f/u, h/o dementia, in past h/o subclinical seizures off anti seizure meds, patient was admitted to the tele floor for c/o CP, w/u showed NSTEMI, p atient mentions the symptoms started few days back with c/o difficulty to walk few blocks due to chest discomfort. This morning he came with pain 9-10, with gradually improved to 3-4 in the hospital and the troponins gradually sarah beth. 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 Patient already on ASA, plavix, heparin drip, statin, and betablocker. Patient's discomfort 2-3 out of 10. EKG no acute ST-T changes. PMH as above PSH REVENUE LIAISON shunt, bunion surg, right inguinal hernia surg Allergies pcn, tetracycline, with c/o itching, but has received similar group abx with benadryl without complains. Family Mom of [place] age 70, father, had heart issues, on brother had [place] but has h/o smoking Social works intermittently, denies smoking, illicit drugs, drinks beers 10-12 oz 2 beers 3-4 times/wk Meds reviewed Review of Systems - Review of Systems All systems: reviewed and no additional remarkable complaints except (HPI) Physical Exam - Additional Findings Additional findings: * HEENT JOHAN, shunt could be felt on the right side with prior swift of marty holes * Neck Supple * Chest Clear * CVS Regular, no gallop or rub * PA soft, nt bs present * Ext no edema, varicose veins on the right knee, left leg * Assessment & Plan - Assessment and Plan (Free Text) Assessment: * NSTEMI * NIDDM * NPH, s/p REVENUE LIAISON shunt, poor f/u with gradually worsening gait * Plan: * Antiplatelet, anticoagulation * Betablocker * Statin * Cardiology on case, if symptoms in control plan for cath on this Saturday. * Home meds * Maintain euglycemia * See orders for detail. Past Patient History - Past Medical History & Family History Past Medical History?: Yes - Past Social History Smoking Status: Never Smoked Alcohol: < 2 Drinks/Day Home Situation {Lives}: With Family - CARDIAC Hx Hypercholesterolemia: Yes Hx Hypertension: Yes - PULMONARY Hx Respiratory Disorders: No - NEUROLOGICAL Hx Dementia: Yes (early onset) - HEENT Hx HEENT Problems: No - RENAL Hx Chronic Kidney Disease: No Hx Kidney Stones: Yes - ENDOCRINE/METABOLIC Hx Endocrine Disorders: Yes Hx Diabetes Mellitus Type 2: Yes - HEMATOLOGICAL/ONCOLOGICAL Hx Blood Disorders: No - INTEGUMENTARY Hx Dermatological Problems: No - MUSCULOSKELETAL/RHEUMATOLOGICAL Hx Musculoskeletal Disorders: No - GASTROINTESTINAL Hx Gastrointestinal Disorders: No - GENITOURINARY/GYNECOLOGICAL Hx Genitourinary Disorders: No - PSYCHIATRIC Hx Substance Use: No - SURGICAL HISTORY Hx Surgeries: Yes Other/Comment: 2009-shunt brain,november-2016 cystoscopy,stent placement with kidney stones,nephrolithiasis - ANESTHESIA Hx Anesthesia: Yes Hx Anesthesia Reactions: No Hx Malignant Hyperthermia: No Meds Allergies/Adverse Reactions: Allergies Allergy/AdvReac Type Severity Reaction Status Date / Time amoxicillin [From Augmentin] Allergy Verified 03/21/18 06:25 clavulanic acid Allergy Verified 03/21/18 06:25 [From Augmentin] Tetracyclines Allergy Verified 03/21/18 06:25 - Medications Medications: Current Medications Aspirin (Ecotrin) 81 mg PO DAILY [facility] Clopidogrel Bisulfate (Plavix) 75 mg PO DAILY [facility] Docusate Sodium (Colace) 100 mg PO BID [facility] Last Admin: 03/21/18 17:39 Dose: 100 mg Glipizide (Glucotrol) 10 mg PO ACB [facility] Last Admin: 03/22/18 07:43 Dose: 10 mg Heparin Sodium/Sodium Chloride (Heparin 00619 Units/250ml 1/2 Normal Saline) 25,000 units in 250 mls @ 8.981 mls/hr IV .Q24H PRN; Protocol PRN Reason: PROTOCOL Last Admin: 03/21/18 16:46 Dose: 12 units/kg/hr, 8.981 mls/hr Magnesium Sulfate/Dextrose (Magnesium Sulfate 1 Gm/100 Ml D5w) 1 gm in 100 mls @ 200 mls/hr IVPB ONCE ONE Stop: 03/22/18 09:29 Last Admin: 03/22/18 08:34 Dose: 200 mls/hr Insulin Human Regular (Novolin R) 0 unit [place] [facility]; Protocol Last Admin: 03/22/18 07:43 Dose: 2 u Lamotrigine (Lamictal) 25 mg PO BID [facility] Last Admin: 03/21/18 17:39 Dose: 25 mg Metoprolol Tartrate (Lopressor) 12.5 mg PO BID [facility] Last Admin: 03/21/18 17:39 Dose: 12.5 mg Rosuvastatin Calcium (Crestor) 20 mg PO HS [facility] Last Admin: 03/21/18 21:53 Dose: 20 mg Results - Vital Signs Recent Vital Signs: Last Vital Signs Temp 98.5 F 03/22/18 04:00 Pulse 74 03/22/18 07:01 Resp 14 03/22/18 07:01 BP 113/66 03/22/18 07:21 Pulse Ox 96 03/22/18 07:01 - Labs Result Diagrams: 03/22/18 05:59 03/22/18 05:59 Labs: Laboratory Results - last 24 hr 03/21/18 03/21/18 03/21/18 11:37 12:14 12:14 WBC RBC Hgb Hct MCV MCH MCHC RDW Plt Count MPV Neut % (Auto) Lymph % (Auto) [place] % (Auto) Eos % (Auto) Baso % (Auto) Neut # (Auto) Lymph # (Auto) [place] # (Auto) Eos # (Auto) Baso # (Auto) PT INR APTT Sodium Potassium Chloride Carbon Dioxide Anion Gap BUN Creatinine Est GFR ( Amer) Est GFR (Non-Af Amer) POC Glucose (mg/dL) 194 H Random Glucose Hemoglobin A1c 6.6 H Calcium Phosphorus Magnesium Total Bilirubin AST ALT Alkaline Phosphatase Total Creatine Kinase 156 CK-MB (Mass) 11.4 H Troponin I 0.7590 H* Total Protein Albumin Globulin Albumin/Globulin Ratio Triglycerides 248 H Cholesterol 235 H LDL Cholesterol Direct 154 H HDL Cholesterol 56 03/21/18 03/21/18 03/21/18 16:12 16:19 20:05 WBC RBC Hgb Hct MCV MCH MCHC RDW Plt Count MPV Neut % (Auto) Lymph % (Auto) [place] % (Auto) Eos % (Auto) Baso % (Auto) Neut # (Auto) Lymph # (Auto) [place] # (Auto) Eos # (Auto) Baso # (Auto) PT 10.9 INR 1.0 APTT 27 Sodium Potassium Chloride Carbon Dioxide Anion Gap BUN Creatinine Est GFR ( Amer) Est GFR (Non-Af Amer) POC Glucose (mg/dL) 116 H Random Glucose Hemoglobin A1c Calcium Phosphorus Magnesium Total Bilirubin AST ALT Alkaline Phosphatase Total Creatine Kinase 379 H CK-MB (Mass) 35.8 H Troponin I 7.2400 H* Total Protein Albumin Globulin Albumin/Globulin Ratio Triglycerides Cholesterol LDL Cholesterol Direct HDL Cholesterol 03/21/18 03/21/18 03/22/18 21:21 23:36 05:59 WBC 7.3 RBC 3.71 L Hgb 12.9 Hct 37.0 MCV 99.6 H MCH 34.7 H MCHC 34.8 RDW 13.4 Plt Count 207 MPV 9.6 Neut % (Auto) 75.7 H Lymph % (Auto) 14.6 L [place] % (Auto) 7.9 Eos % (Auto) 1.5 Baso % (Auto) 0.3 Neut # (Auto) 5.5 Lymph # (Auto) 1.1 [place] # (Auto) 0.6 Eos # (Auto) 0.1 Baso # (Auto) 0.0 PT 11.1 INR 1.0 APTT 72 H D Sodium Potassium Chloride Carbon Dioxide Anion Gap BUN Creatinine Est GFR ( Amer) Est GFR (Non-Af Amer) POC Glucose (mg/dL) 153 H Random Glucose Hemoglobin A1c Calcium Phosphorus Magnesium Total Bilirubin AST ALT Alkaline Phosphatase Total Creatine Kinase CK-MB (Mass) Troponin I Total Protein Albumin Globulin Albumin/Globulin Ratio Triglycerides Cholesterol LDL Cholesterol Direct HDL Cholesterol 03/22/18 03/22/18 05:59 05:59 WBC RBC Hgb Hct MCV MCH MCHC RDW Plt Count MPV Neut % (Auto) Lymph % (Auto) [place] % (Auto) Eos % (Auto) Baso % (Auto) Neut # (Auto) Lymph # (Auto) [place] # (Auto) Eos # (Auto) Baso # (Auto) PT INR APTT 74 H Sodium 134 Potassium 4.5 Chloride 103 Carbon Dioxide 22 Anion Gap 13 BUN 16 Creatinine 0.5 L Est GFR ( Amer) > 60 Est GFR (Non-Af Amer) > 60 POC Glucose (mg/dL) Random Glucose 161 H Hemoglobin A1c Calcium 8.3 L Phosphorus 2.9 Magnesium 1.7 Total Bilirubin 0.9 AST 86 H D ALT 27 Alkaline Phosphatase 58 Total Creatine Kinase 326 H CK-MB (Mass) 21.4 H Troponin I 9.3500 H* Total Protein 6.9 Albumin 3.6 Globulin 3.3 Albumin/Globulin Ratio 1.1 Triglycerides Cholesterol LDL Cholesterol Direct HDL Cholesterol
[2018-03-22] MEDS ORDERED: Magnesium Sulfate 1 gm in D5W 1 GM/100 ML BAG IVPB ONE (09:00)
--- NOTE | 2018-03-22 09:33 | CP.CCUPN ---
CCU Subjective - Physician Review Events Since Last Encounter (Free Text): 03/22/18 09:33 Patient was transferred to ICU for non-ST elevation [place]. Patient has no pain now. He has no chest pain. He is eating well. No nausea, no vomiting noted. Currently patient is receiving intravenous heparin, he is also on antiplatelets and beta blockers On examination: Vital signs stable. Chest good air entry bilaterally Regular heart sound noted. Nontender abdomen. 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 Elevated troponin level noted. Asymptomatic now. Will continue the current treatment. Cardiology follow-up. Possible angiogram. Continue the antiplatelet is beta blockers and will follow-up the patient CCU Objective - Vital Signs / Intake & Output Vital Signs (Last 4 hours): Vital Signs Temp Pulse Resp BP Pulse Ox 03/22/18 08:02 68 14 109/64 99 03/22/18 08:00 98.1 F 71 15 96 03/22/18 07:21 113/66 03/22/18 07:01 74 14 96 03/22/18 06:10 75 18 108/64 97 Intake and Output (Last 8hrs): Intake & Output 03/21/18 03/22/18 03/22/18 22:59 06:59 14:59 Intake Total 195.2 358.2 Output Total 550 300 Balance -354.8 58.2 Weight 172 lb 6.424 oz Intake: Intake, IV Amount 75.2 38.2 Left Hand 75.2 28.2 Right Antecubital 10 Oral 120 320 Output: Urine 550 300 Urine, Voided 550 300 Other: # Voids Urine, Voided 1 1 # Bowel Movements 1 0 - Medications Active Medications: Active Medications Generic Name Dose Route Start Last Admin Trade Name Freq PRN Reason Stop Dose Admin Aspirin 81 mg 03/22/18 10:00 03/22/18 09:18 Ecotrin PO 81 mg DAILY [facility] Administration Clopidogrel Bisulfate 75 mg 03/22/18 10:00 03/22/18 09:13 Plavix PO 75 mg DAILY [facility] Administration Docusate Sodium 100 mg 03/21/18 18:00 03/22/18 09:13 Colace PO 100 mg BID [facility] Administration Glipizide 10 mg 03/22/18 07:30 03/22/18 07:43 Glucotrol PO 10 mg ACB [facility] Administration Heparin Sodium/Sodium Chloride 25,000 units in 250 mls @ 8.981 mls/hr 03/21/18 14:58 03/21/18 16:46 Heparin 03583 Units/250ml 1/2 Normal Saline IV 12 units/kg/hr .Q24H PRN 8.981 mls/hr PROTOCOL Administration Protocol 12 UNITS/KG/HR Insulin Human Regular 0 unit 03/21/18 11:30 03/22/18 07:43 Novolin R SC 2 u ACHS [facility] Administration Protocol Lamotrigine 25 mg 03/21/18 18:00 03/22/18 09:14 Lamictal PO 25 mg BID [facility] Administration Metoprolol Tartrate 12.5 mg 03/21/18 15:00 03/22/18 09:13 Lopressor PO 12.5 mg BID [facility] Administration Rosuvastatin Calcium 20 mg 03/21/18 22:00 03/21/18 21:53 Crestor PO 20 mg HS [facility] Administration - Patient Studies Lab Studies: Lab Studies 03/22/18 03/22/18 03/22/18 Range/Units 05:59 05:59 05:59 WBC 7.3 (4.8-10.8) K/uL RBC 3.71 L (4.40-5.90) Mil/uL Hgb 12.9 (12.0-18.0) g/dL Hct 37.0 (35.0-51.0) % MCV 99.6 H (80.0-94.0) fL MCH 34.7 H (27.0-31.0) pg MCHC 34.8 (33.0-37.0) g/dL RDW 13.4 (11.5-14.5) % Plt Count 207 (130-400) K/uL MPV 9.6 (7.2-11.7) fL Neut % (Auto) 75.7 H (50.0-75.0) % Lymph % (Auto) 14.6 L (20.0-40.0) % Kay % (Auto) 7.9 (0.0-10.0) % Eos % (Auto) 1.5 (0.0-4.0) % Baso % (Auto) 0.3 (0.0-2.0) % Neut # (Auto) 5.5 (1.8-7.0) K/uL Lymph # (Auto) 1.1 (1.0-4.3) K/uL Kay # (Auto) 0.6 (0.0-0.8) K/uL Eos # (Auto) 0.1 (0.0-0.7) K/uL Baso # (Auto) 0.0 (0.0-0.2) K/uL PT (9.7-12.2) SECONDS INR APTT 74 H (21-34) SECONDS Sodium 134 (132-148) mmol/L Potassium 4.5 (3.6-5.2) mmol/L Chloride 103 (98-107) mmol/L Carbon Dioxide 22 (22-30) mmol/L Anion Gap 13 (10-20) BUN 16 (9-20) mg/dL Creatinine 0.5 L (0.8-1.5) mg/dL Est GFR ( Amer) > 60 Est GFR (Non-Af Amer) > 60 POC Glucose (mg/dL) (65-110) mg/dL Random Glucose 161 H (75-110) mg/dL Hemoglobin A1c (4.2-6.5) % Calcium 8.3 L (8.6-10.4) mg/dl Phosphorus 2.9 (2.5-4.5) mg/dL Magnesium 1.7 (1.6-2.3) mg/dL Total Bilirubin 0.9 (0.2-1.3) mg/dL AST 86 H D (17-59) U/L ALT 27 (21-72) U/L Alkaline Phosphatase 58 (38-126) U/L Total Creatine Kinase 326 H (55-170) U/L CK-MB (Mass) 21.4 H (0.0-3.38) ng/mL Troponin I 9.3500 H* (0.00-0.120) ng/mL Total Protein 6.9 (6.3-8.3) g/dL Albumin 3.6 (3.5-5.0) g/dL Globulin 3.3 (2.2-3.9) gm/dL Albumin/Globulin Ratio 1.1 (1.0-2.1) Triglycerides (0-149) mg/dL Cholesterol (0-199) mg/dL LDL Cholesterol Direct (0-129) mg/dL HDL Cholesterol (30-70) mg/dL 03/21/18 03/21/18 03/21/18 Range/Units 23:36 21:21 20:05 WBC (4.8-10.8) K/uL RBC (4.40-5.90) Mil/uL Hgb (12.0-18.0) g/dL Hct (35.0-51.0) % MCV (80.0-94.0) fL MCH (27.0-31.0) pg MCHC (33.0-37.0) g/dL RDW (11.5-14.5) % Plt Count (130-400) K/uL MPV (7.2-11.7) fL Neut % (Auto) (50.0-75.0) % Lymph % (Auto) (20.0-40.0) % Kay % (Auto) (0.0-10.0) % Eos % (Auto) (0.0-4.0) % Baso % (Auto) (0.0-2.0) % Neut # (Auto) (1.8-7.0) K/uL Lymph # (Auto) (1.0-4.3) K/uL Kay # (Auto) (0.0-0.8) K/uL Eos # (Auto) (0.0-0.7) K/uL Baso # (Auto) (0.0-0.2) K/uL PT 11.1 (9.7-12.2) SECONDS INR 1.0 APTT 72 H D (21-34) SECONDS Sodium (132-148) mmol/L Potassium (3.6-5.2) mmol/L Chloride (98-107) mmol/L Carbon Dioxide (22-30) mmol/L Anion Gap (10-20) BUN (9-20) mg/dL Creatinine (0.8-1.5) mg/dL Est GFR ( Amer) Est GFR (Non-Af Amer) POC Glucose (mg/dL) 153 H (65-110) mg/dL Random Glucose (75-110) mg/dL Hemoglobin A1c (4.2-6.5) % Calcium (8.6-10.4) mg/dl Phosphorus (2.5-4.5) mg/dL Magnesium (1.6-2.3) mg/dL Total Bilirubin (0.2-1.3) mg/dL AST (17-59) U/L ALT (21-72) U/L Alkaline Phosphatase (38-126) U/L Total Creatine Kinase 379 H (55-170) U/L CK-MB (Mass) 35.8 H (0.0-3.38) ng/mL Troponin I 7.2400 H* (0.00-0.120) ng/mL Total Protein (6.3-8.3) g/dL Albumin (3.5-5.0) g/dL Globulin (2.2-3.9) gm/dL Albumin/Globulin Ratio (1.0-2.1) Triglycerides (0-149) mg/dL Cholesterol (0-199) mg/dL LDL Cholesterol Direct (0-129) mg/dL HDL Cholesterol (30-70) mg/dL 03/21/18 03/21/18 03/21/18 Range/Units 16:19 16:12 12:14 WBC (4.8-10.8) K/uL RBC (4.40-5.90) Mil/uL Hgb (12.0-18.0) g/dL Hct (35.0-51.0) % MCV (80.0-94.0) fL MCH (27.0-31.0) pg MCHC (33.0-37.0) g/dL RDW (11.5-14.5) % Plt Count (130-400) K/uL MPV (7.2-11.7) fL Neut % (Auto) (50.0-75.0) % Lymph % (Auto) (20.0-40.0) % Kay % (Auto) (0.0-10.0) % Eos % (Auto) (0.0-4.0) % Baso % (Auto) (0.0-2.0) % Neut # (Auto) (1.8-7.0) K/uL Lymph # (Auto) (1.0-4.3) K/uL Kay # (Auto) (0.0-0.8) K/uL Eos # (Auto) (0.0-0.7) K/uL Baso # (Auto) (0.0-0.2) K/uL PT 10.9 (9.7-12.2) SECONDS INR 1.0 APTT 27 (21-34) SECONDS Sodium (132-148) mmol/L Potassium (3.6-5.2) mmol/L Chloride (98-107) mmol/L Carbon Dioxide (22-30) mmol/L Anion Gap (10-20) BUN (9-20) mg/dL Creatinine (0.8-1.5) mg/dL Est GFR ( Amer) Est GFR (Non-Af Amer) POC Glucose (mg/dL) 116 H (65-110) mg/dL Random Glucose (75-110) mg/dL Hemoglobin A1c 6.6 H (4.2-6.5) % Calcium (8.6-10.4) mg/dl Phosphorus (2.5-4.5) mg/dL Magnesium (1.6-2.3) mg/dL Total Bilirubin (0.2-1.3) mg/dL AST (17-59) U/L ALT (21-72) U/L Alkaline Phosphatase (38-126) U/L Total Creatine Kinase (55-170) U/L CK-MB (Mass) (0.0-3.38) ng/mL Troponin I (0.00-0.120) ng/mL Total Protein (6.3-8.3) g/dL Albumin (3.5-5.0) g/dL Globulin (2.2-3.9) gm/dL Albumin/Globulin Ratio (1.0-2.1) Triglycerides (0-149) mg/dL Cholesterol (0-199) mg/dL LDL Cholesterol Direct (0-129) mg/dL HDL Cholesterol (30-70) mg/dL 03/21/18 03/21/18 Range/Units 12:14 11:37 WBC (4.8-10.8) K/uL RBC (4.40-5.90) Mil/uL Hgb (12.0-18.0) g/dL Hct (35.0-51.0) % MCV (80.0-94.0) fL MCH (27.0-31.0) pg MCHC (33.0-37.0) g/dL RDW (11.5-14.5) % Plt Count (130-400) K/uL MPV (7.2-11.7) fL Neut % (Auto) (50.0-75.0) % Lymph % (Auto) (20.0-40.0) % Kay % (Auto) (0.0-10.0) % Eos % (Auto) (0.0-4.0) % Baso % (Auto) (0.0-2.0) % Neut # (Auto) (1.8-7.0) K/uL Lymph # (Auto) (1.0-4.3) K/uL Kay # (Auto) (0.0-0.8) K/uL Eos # (Auto) (0.0-0.7) K/uL Baso # (Auto) (0.0-0.2) K/uL PT (9.7-12.2) SECONDS INR APTT (21-34) SECONDS Sodium (132-148) mmol/L Potassium (3.6-5.2) mmol/L Chloride (98-107) mmol/L Carbon Dioxide (22-30) mmol/L Anion Gap (10-20) BUN (9-20) mg/dL Creatinine (0.8-1.5) mg/dL Est GFR ( Amer) Est GFR (Non-Af Amer) POC Glucose (mg/dL) 194 H (65-110) mg/dL Random Glucose (75-110) mg/dL Hemoglobin A1c (4.2-6.5) % Calcium (8.6-10.4) mg/dl Phosphorus (2.5-4.5) mg/dL Magnesium (1.6-2.3) mg/dL Total Bilirubin (0.2-1.3) mg/dL AST (17-59) U/L ALT (21-72) U/L Alkaline Phosphatase (38-126) U/L Total Creatine Kinase 156 (55-170) U/L CK-MB (Mass) 11.4 H (0.0-3.38) ng/mL Troponin I 0.7590 H* (0.00-0.120) ng/mL Total Protein (6.3-8.3) g/dL Albumin (3.5-5.0) g/dL Globulin (2.2-3.9) gm/dL Albumin/Globulin Ratio (1.0-2.1) Triglycerides 248 H (0-149) mg/dL Cholesterol 235 H (0-199) mg/dL LDL Cholesterol Direct 154 H (0-129) mg/dL HDL Cholesterol 56 (30-70) mg/dL Laboratory Results - last 24 hr 03/21/18 03/21/18 03/21/18 11:37 12:14 12:14 WBC RBC Hgb Hct MCV MCH MCHC RDW Plt Count MPV Neut % (Auto) Lymph % (Auto) Kay % (Auto) Eos % (Auto) Baso % (Auto) Neut # (Auto) Lymph # (Auto) Kay # (Auto) Eos # (Auto) Baso # (Auto) PT INR APTT Sodium Potassium Chloride Carbon Dioxide Anion Gap BUN Creatinine Est GFR ( Amer) Est GFR (Non-Af Amer) POC Glucose (mg/dL) 194 H Random Glucose Hemoglobin A1c 6.6 H Calcium Phosphorus Magnesium Total Bilirubin AST ALT Alkaline Phosphatase Total Creatine Kinase 156 CK-MB (Mass) 11.4 H Troponin I 0.7590 H* Total Protein Albumin Globulin Albumin/Globulin Ratio Triglycerides 248 H Cholesterol 235 H LDL Cholesterol Direct 154 H HDL Cholesterol 56 03/21/18 03/21/18 03/21/18 16:12 16:19 20:05 WBC RBC Hgb Hct MCV MCH MCHC RDW Plt Count MPV Neut % (Auto) Lymph % (Auto) Kay % (Auto) Eos % (Auto) Baso % (Auto) Neut # (Auto) Lymph # (Auto) Kay # (Auto) Eos # (Auto) Baso # (Auto) PT 10.9 INR 1.0 APTT 27 Sodium Potassium Chloride Carbon Dioxide Anion Gap BUN Creatinine Est GFR ( Amer) Est GFR (Non-Af Amer) POC Glucose (mg/dL) 116 H Random Glucose Hemoglobin A1c Calcium Phosphorus Magnesium Total Bilirubin AST ALT Alkaline Phosphatase Total Creatine Kinase 379 H CK-MB (Mass) 35.8 H Troponin I 7.2400 H* Total Protein Albumin Globulin Albumin/Globulin Ratio Triglycerides Cholesterol LDL Cholesterol Direct HDL Cholesterol 03/21/18 03/21/18 03/22/18 21:21 23:36 05:59 WBC 7.3 RBC 3.71 L Hgb 12.9 Hct 37.0 MCV 99.6 H MCH 34.7 H MCHC 34.8 RDW 13.4 Plt Count 207 MPV 9.6 Neut % (Auto) 75.7 H Lymph % (Auto) 14.6 L Kay % (Auto) 7.9 Eos % (Auto) 1.5 Baso % (Auto) 0.3 Neut # (Auto) 5.5 Lymph # (Auto) 1.1 Kay # (Auto) 0.6 Eos # (Auto) 0.1 Baso # (Auto) 0.0 PT 11.1 INR 1.0 APTT 72 H D Sodium Potassium Chloride Carbon Dioxide Anion Gap BUN Creatinine Est GFR ( Amer) Est GFR (Non-Af Amer) POC Glucose (mg/dL) 153 H Random Glucose Hemoglobin A1c Calcium Phosphorus Magnesium Total Bilirubin AST ALT Alkaline Phosphatase Total Creatine Kinase CK-MB (Mass) Troponin I Total Protein Albumin Globulin Albumin/Globulin Ratio Triglycerides Cholesterol LDL Cholesterol Direct HDL Cholesterol 03/22/18 03/22/18 05:59 05:59 WBC RBC Hgb Hct MCV MCH MCHC RDW Plt Count MPV Neut % (Auto) Lymph % (Auto) Kay % (Auto) Eos % (Auto) Baso % (Auto) Neut # (Auto) Lymph # (Auto) Kay # (Auto) Eos # (Auto) Baso # (Auto) PT INR APTT 74 H Sodium 134 Potassium 4.5 Chloride 103 Carbon Dioxide 22 Anion Gap 13 BUN 16 Creatinine 0.5 L Est GFR ( Amer) > 60 Est GFR (Non-Af Amer) > 60 POC Glucose (mg/dL) Random Glucose 161 H Hemoglobin A1c Calcium 8.3 L Phosphorus 2.9 Magnesium 1.7 Total Bilirubin 0.9 AST 86 H D ALT 27 Alkaline Phosphatase 58 Total Creatine Kinase 326 H CK-MB (Mass) 21.4 H Troponin I 9.3500 H* Total Protein 6.9 Albumin 3.6 Globulin 3.3 Albumin/Globulin Ratio 1.1 Triglycerides Cholesterol LDL Cholesterol Direct HDL Cholesterol EKG/Cardiology Studies: Cardiology / EKG Studies 03/21/18 13:47 EKG [ELECTROCARDIOGRAM] Stat Comment: Mode Of Transportation: Reason For Exam: chest pain 03/21/18 14:01 EKG [ELECTROCARDIOGRAM] Stat Comment: Mode Of Transportation: BED Reason For Exam: CHEST PAIN Fingerstick Blood Sugar Results: 158 Critical Care Progress Note - Nutrition Nutrition: Nutrition Category Date Time Status Diabetic [Consistent Carbohydrate] [DIET] Diets 03/21/18 Breakfast Active
[2018-03-22] MEDS ORDERED: Enoxaparin 40 mg Syringe SC SCH (10:00)
[2018-03-22] MEDS: Heparin25000 units/250ml 1/2NS 25,000 UNITS/250 ML BAG IV PRN (17:16)
--- NOTE | 2018-03-22 18:53 | CP.PCM.PN ---
Subjective - Date & Time of Evaluation Date of Evaluation: 03/22/18 Time of Evaluation: 14:10 - Subjective Subjective: Patient seen and evaluated in ICU Denies chest pain and dyspnea Review of Systems - Review of Systems All systems: reviewed and no additional remarkable complaints except (HPI) Physical Exam - Additional Findings Additional findings: * HEENT JOHAN, shunt could be felt on the right side with prior swift of marty holes * Neck Supple * Chest Clear * CVS Regular, no gallop or rub * PA soft, nt bs present * Ext no edema, varicose veins on the right knee, left leg * Assessment & Plan - Assessment and Plan (Free Text) Assessment: * NSTEMI * NIDDM * NPH, s/p CUSTODIAL WORKER shunt, poor f/u with gradually worsening gait * Plan: * Antiplatelet, anticoagulation * Betablocker * Statin * Cath on this Saturday. * Home meds * Maintain euglycemia * See orders for detail. Objective - Vital Signs/Intake and Output Vital Signs (last 24 hours): Temp Pulse Resp BP Pulse Ox 98.1 F 77 11 L 131/81 98 03/22/18 16:00 03/22/18 17:08 03/22/18 17:08 03/22/18 17:08 03/22/18 17:08 Intake and Output: 03/22/18 03/22/18 06:59 18:59 Intake Total 195.2 1732.8 Output Total 550 750 Balance -354.8 982.8 - Medications Medications: Current Medications Aspirin (Ecotrin) 81 mg PO DAILY [facility] Last Admin: 03/22/18 09:18 Dose: 81 mg Clopidogrel Bisulfate (Plavix) 75 mg PO DAILY [facility] Last Admin: 03/22/18 09:13 Dose: 75 mg Docusate Sodium (Colace) 100 mg PO BID [facility] Last Admin: 03/22/18 17:20 Dose: 100 mg Glipizide (Glucotrol) 10 mg PO ACB [facility] Last Admin: 03/22/18 07:43 Dose: 10 mg Heparin Sodium/Sodium Chloride (Heparin 70045 Units/250ml 1/2 Normal Saline) 25,000 units in 250 mls @ 8.981 mls/hr IV .Q24H PRN; Protocol PRN Reason: PROTOCOL Last Admin: 03/22/18 17:16 Dose: 12 units/kg/hr, 8.981 mls/hr Insulin Human Regular (Novolin R) 0 unit SC ACHS [facility]; Protocol Last Admin: 03/22/18 17:21 Dose: Not Given Lamotrigine (Lamictal) 25 mg PO BID [facility] Last Admin: 03/22/18 17:21 Dose: 25 mg Metoprolol Tartrate (Lopressor) 12.5 mg PO BID [facility] Last Admin: 03/22/18 17:20 Dose: 12.5 mg Rosuvastatin Calcium (Crestor) 20 mg PO HS [facility] Last Admin: 03/21/18 21:53 Dose: 20 mg - Labs Labs: 03/22/18 05:59 03/22/18 05:59 PT 11.1 SECONDS (9.7-12.2) 03/21/18 23:36 INR 1.0 03/21/18 23:36 APTT 74 SECONDS (21-34) H 03/22/18 05:59 Assessment and Plan - Assessment and Plan (Free Text) Assessment: 62-year-old male admitted with a non-ST elevation [place]. Elevated troponin level. Asymptomatic now. Will continue the current treatment. Possible angiogram. Continue the antiplatelet is beta blockers and will follow-up the patient
--- NOTE | 2018-03-22 19:26 | CP.PCM.PN ---
Subjective - Subjective Subjective: dictated Objective - Vital Signs/Intake and Output Vital Signs (last 24 hours): Temp Pulse Resp BP Pulse Ox 98.1 F 76 22 122/68 96 03/22/18 16:00 03/22/18 19:02 03/22/18 19:02 03/22/18 19:02 03/22/18 19:02 Intake and Output: 03/22/18 03/23/18 18:59 06:59 Intake Total 1742.2 9.4 Output Total 750 Balance 992.2 9.4 - Medications Medications: Current Medications Aspirin (Ecotrin) 81 mg PO DAILY [facility] Last Admin: 03/22/18 09:18 Dose: 81 mg Clopidogrel Bisulfate (Plavix) 75 mg PO DAILY [facility] Last Admin: 03/22/18 09:13 Dose: 75 mg Docusate Sodium (Colace) 100 mg PO BID [facility] Last Admin: 03/22/18 17:20 Dose: 100 mg Glipizide (Glucotrol) 10 mg PO ACB [facility] Last Admin: 03/22/18 07:43 Dose: 10 mg Heparin Sodium/Sodium Chloride (Heparin 63229 Units/250ml 1/2 Normal Saline) 25,000 units in 250 mls @ 8.981 mls/hr IV .Q24H PRN; Protocol PRN Reason: PROTOCOL Last Admin: 03/22/18 17:16 Dose: 12 units/kg/hr, 8.981 mls/hr Insulin Human Regular (Novolin R) 0 unit SC ACHS [facility]; Protocol Last Admin: 03/22/18 17:21 Dose: Not Given Lamotrigine (Lamictal) 25 mg PO BID [facility] Last Admin: 03/22/18 17:21 Dose: 25 mg Metoprolol Tartrate (Lopressor) 12.5 mg PO BID [facility] Last Admin: 03/22/18 17:20 Dose: 12.5 mg Rosuvastatin Calcium (Crestor) 20 mg PO HS [facility] Last Admin: 03/21/18 21:53 Dose: 20 mg - Labs Labs: 03/22/18 05:59 03/22/18 05:59 PT 11.1 SECONDS (9.7-12.2) 03/21/18 23:36 INR 1.0 03/21/18 23:36 APTT 74 SECONDS (21-34) H 03/22/18 05:59
--- NOTE | 2018-03-23 04:59 | PN ---
DATE: 03/22/2018 SUBJECTIVE: The patient denies any chest pain. He is relatively stable. His troponin is trending upward. PHYSICAL EXAMINATION: VITAL SIGNS: BP 132/65, pulse , respiratory rate 20, and temperature 98. LUNGS: Clear. CARDIOVASCULAR SYSTEM: S1 and S2, regular. ABDOMEN: Soft. ASSESSMENT: 1. Acute myocardial infarction. 2. Diabetes. 3. Hypertension. PLAN: Medical management. Monitor the patient. Patricio Sidhu MD
[2018-03-23 06:07] LABS: BASO % 0.3 % (0.0-2.0); EOS # 0.1 K/uL (0.0-0.7); EOS % 1.4 % (0.0-4.0); HEMOGLOBIN 12.7 g/dL (12.0-18.0); LYMPH # 1.2 K/uL (1.0-4.3); LYMPH % 16.6 % (20.0-40.0); MEAN CORPUSCULAR HEMOGLOBIN 34.9 pg (27.0-31.0); MEAN CORPUSCULAR HGB CONC 35.3 g/dL (33.0-37.0); MONO # 0.6 K/uL (0.0-0.8); MONO % 8.9 % (0.0-10.0); NEUT # 5.3 K/uL (1.8-7.0); NEUT % 72.8 % (50.0-75.0); RBC 3.62 Mil/uL (4.40-5.90); RED CELL DISTRIBUTION WIDTH 13.3 % (11.5-14.5); WHITE BLOOD COUNT 7.3 K/uL (4.8-10.8)
[2018-03-23 06:32] LABS: ALB/GLOB RATIO 1.1 (1.0-2.1); ALBUMIN 3.6 g/dL (3.5-5.0); ALT/SGPT 25 U/L (21-72); AST/SGOT 35 U/L (17-59); BLOOD UREA NITROGEN 16 mg/dL (9-20); CALCIUM 8.6 mg/dl (8.6-10.4); GFR NON-AFRICAN AMERICAN > 60
[2018-03-23] MEDS ORDERED: Magnesium Sulfate 1 gm in D5W 1 GM/100 ML BAG IVPB ONE (07:42)
--- NOTE | 2018-03-23 07:42 | CP.CCUPN ---
CCU Subjective - Physician Review Events Since Last Encounter (Free Text): 03/23/18 07:41 Patient was transferred to ICU for non-ST elevation [place]. Patient feeling slightly better. He has no chest pain. He is eating well. No nausea, no vomiting noted. Currently patient is receiving intravenous heparin, he is also on antiplatelets and beta blockers On examination: Vital signs stable. Chest good air entry bilaterally Regular heart sound noted. Nontender abdomen. 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 Elevated troponin level noted. Asymptomatic now. Will continue the current treatment. Cardiology follow-up. Possible angiogram. Continue the antiplatelet is beta blockers and will follow-up the patient Monitor the troponin level CCU Objective - Vital Signs / Intake & Output Vital Signs (Last 4 hours): Vital Signs Temp Pulse Resp BP Pulse Ox 03/23/18 07:02 79 20 123/74 97 03/23/18 07:00 69 16 94 L 03/23/18 06:01 81 22 117/73 03/23/18 06:00 80 18 95 03/23/18 05:01 82 15 122/77 94 L 03/23/18 05:00 76 17 94 L 03/23/18 04:02 81 14 118/78 96 03/23/18 04:00 98 F 81 17 93 L Intake and Output (Last 8hrs): Intake & Output 03/22/18 03/23/18 03/23/18 22:59 06:59 14:59 Intake Total 985.2 175.2 9.4 Output Total 200 500 Balance 785.2 -324.8 9.4 Weight 172 lb 5 oz Intake: IV 250 Intake, IV Amount 75.2 75.2 9.4 Left Hand 75.2 75.2 9.4 Oral 660 100 Output: Urine 200 500 Urine, Voided 200 500 Other: # Voids Urine, Voided 1 1 # Bowel Movements 1 1 - Medications Active Medications: Active Medications Generic Name Dose Route Start Last Admin Trade Name Freq PRN Reason Stop Dose Admin Aspirin 81 mg 03/22/18 10:00 03/22/18 09:18 Ecotrin PO 81 mg DAILY [facility] Administration Clopidogrel Bisulfate 75 mg 03/22/18 10:00 03/22/18 09:13 Plavix PO 75 mg DAILY [facility] Administration Docusate Sodium 100 mg 03/21/18 18:00 03/22/18 17:20 Colace PO 100 mg BID [facility] Administration Glipizide 10 mg 03/22/18 07:30 03/22/18 07:43 Glucotrol PO 10 mg ACB [facility] Administration Heparin Sodium/Sodium Chloride 25,000 units in 250 mls @ 8.981 mls/hr 03/21/18 14:58 03/22/18 17:16 Heparin 28423 Units/250ml 1/2 Normal Saline IV 12 units/kg/hr .Q24H PRN 8.981 mls/hr PROTOCOL Administration Protocol 12 UNITS/KG/HR Insulin Human Regular 0 unit 03/21/18 11:30 03/22/18 21:26 Novolin R SC Not Given [facility] Protocol Lamotrigine 25 mg 03/21/18 18:00 03/22/18 17:21 Lamictal PO 25 mg BID [facility] Administration Metoprolol Tartrate 12.5 mg 03/21/18 15:00 03/22/18 17:20 Lopressor PO 12.5 mg BID [facility] Administration Rosuvastatin Calcium 20 mg 03/21/18 22:00 03/22/18 21:25 Crestor PO 20 mg HS [facility] Administration - Patient Studies Lab Studies: Lab Studies 03/23/18 03/23/18 03/23/18 Range/Units 06:01 06:01 06:01 WBC 7.3 (4.8-10.8) K/uL RBC 3.62 L (4.40-5.90) Mil/uL Hgb 12.7 (12.0-18.0) g/dL Hct 35.9 (35.0-51.0) % MCV 99.0 H (80.0-94.0) fL MCH 34.9 H (27.0-31.0) pg MCHC 35.3 (33.0-37.0) g/dL RDW 13.3 (11.5-14.5) % Plt Count 187 (130-400) K/uL MPV 9.0 (7.2-11.7) fL Neut % (Auto) 72.8 (50.0-75.0) % Lymph % (Auto) 16.6 L (20.0-40.0) % [place] % (Auto) 8.9 (0.0-10.0) % Eos % (Auto) 1.4 (0.0-4.0) % Baso % (Auto) 0.3 (0.0-2.0) % Neut # (Auto) 5.3 (1.8-7.0) K/uL Lymph # (Auto) 1.2 (1.0-4.3) K/uL [place] # (Auto) 0.6 (0.0-0.8) K/uL Eos # (Auto) 0.1 (0.0-0.7) K/uL Baso # (Auto) 0.0 (0.0-0.2) K/uL APTT 49 H D (21-34) SECONDS Sodium 136 (132-148) mmol/L Potassium 4.3 (3.6-5.2) mmol/L Chloride 104 (98-107) mmol/L Carbon Dioxide 24 (22-30) mmol/L Anion Gap 12 (10-20) BUN 16 (9-20) mg/dL Creatinine 0.6 L (0.8-1.5) mg/dL Est GFR ( Amer) > 60 Est GFR (Non-Af Amer) > 60 Random Glucose 160 H (75-110) mg/dL Calcium 8.6 (8.6-10.4) mg/dl Phosphorus 2.9 (2.5-4.5) mg/dL Magnesium 1.8 (1.6-2.3) mg/dL Total Bilirubin 0.5 (0.2-1.3) mg/dL AST 35 (17-59) U/L ALT 25 (21-72) U/L Alkaline Phosphatase 65 (38-126) U/L Total Protein 6.7 (6.3-8.3) g/dL Albumin 3.6 (3.5-5.0) g/dL Globulin 3.1 (2.2-3.9) gm/dL Albumin/Globulin Ratio 1.1 (1.0-2.1) Laboratory Results - last 24 hr 03/23/18 03/23/18 03/23/18 06:01 06:01 06:01 WBC 7.3 RBC 3.62 L Hgb 12.7 Hct 35.9 MCV 99.0 H MCH 34.9 H MCHC 35.3 RDW 13.3 Plt Count 187 MPV 9.0 Neut % (Auto) 72.8 Lymph % (Auto) 16.6 L [place] % (Auto) 8.9 Eos % (Auto) 1.4 Baso % (Auto) 0.3 Neut # (Auto) 5.3 Lymph # (Auto) 1.2 [place] # (Auto) 0.6 Eos # (Auto) 0.1 Baso # (Auto) 0.0 APTT 49 H D Sodium 136 Potassium 4.3 Chloride 104 Carbon Dioxide 24 Anion Gap 12 BUN 16 Creatinine 0.6 L Est GFR ( Amer) > 60 Est GFR (Non-Af Amer) > 60 Random Glucose 160 H Calcium 8.6 Phosphorus 2.9 Magnesium 1.8 Total Bilirubin 0.5 AST 35 ALT 25 Alkaline Phosphatase 65 Total Protein 6.7 Albumin 3.6 Globulin 3.1 Albumin/Globulin Ratio 1.1 Fingerstick Blood Sugar Results: 144 Critical Care Progress Note - Nutrition Nutrition: Nutrition Category Date Time Status Diabetic [Consistent Carbohydrate] [DIET] Diets 03/21/18 Breakfast Active
[2018-03-23] MEDS: (Novolin R) Insulin Human Regular 100 units/ml vial SC SCH ×4 (08:44→21:53)
[2018-03-23] MEDS: Heparin25000 units/250ml 1/2NS 25,000 UNITS/250 ML BAG IV PRN (20:30)
--- NOTE | 2018-03-23 20:46 | CP.PCM.PN ---
Subjective - Date & Time of Evaluation Date of Evaluation: 03/23/18 Time of Evaluation: 16:05 - Subjective Subjective: Patient seen and evaluated in ICU Denies chest pain and dyspnea Patient for Cath tomorrow at 3pm Review of Systems - Review of Systems All systems: reviewed and no additional remarkable complaints except (HPI) Physical Exam - Additional Findings Additional findings: * HEENT JOHAN, shunt could be felt on the right side with prior swift of marty holes * Neck Supple * Chest Clear * CVS Regular, no gallop or rub * PA soft, nt bs present * Ext no edema, varicose veins on the right knee, left leg * Assessment & Plan - Assessment and Plan (Free Text) Assessment: * NSTEMI * NIDDM * NPH, 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 * Home meds * Maintain euglycemia * See orders for detail. Objective - Vital Signs/Intake and Output Vital Signs (last 24 hours): Temp Pulse Resp BP Pulse Ox 98.4 F 80 24 134/85 99 03/23/18 16:00 03/23/18 18:35 03/23/18 18:35 03/23/18 19:36 03/23/18 18:35 Intake and Output: 03/23/18 03/24/18 18:59 06:59 Intake Total 1112.8 9.4 Output Total 600 Balance 512.8 9.4 - Medications Medications: Current Medications Aspirin (Ecotrin) 81 mg PO DAILY [facility] Last Admin: 03/23/18 09:36 Dose: 81 mg Clopidogrel Bisulfate (Plavix) 75 mg PO DAILY [facility] Last Admin: 03/23/18 09:36 Dose: 75 mg Docusate Sodium (Colace) 100 mg PO BID [facility] Last Admin: 03/23/18 17:28 Dose: Not Given Glipizide (Glucotrol) 10 mg PO ACB [facility] Last Admin: 03/23/18 08:44 Dose: 10 mg Heparin Sodium/Sodium Chloride (Heparin 19024 Units/250ml 1/2 Normal Saline) 25,000 units in 250 mls @ 8.981 mls/hr IV .Q24H PRN; Protocol PRN Reason: PROTOCOL Last Admin: 03/22/18 17:16 Dose: 12 units/kg/hr, 8.981 mls/hr Insulin Human Regular (Novolin R) 0 unit SC ACHS [facility]; Protocol Last Admin: 03/23/18 16:38 Dose: Not Given Lamotrigine (Lamictal) 25 mg PO BID [facility] Last Admin: 03/23/18 17:29 Dose: 25 mg Metoprolol Tartrate (Lopressor) 12.5 mg PO BID [facility] Last Admin: 03/23/18 17:29 Dose: 12.5 mg Rosuvastatin Calcium (Crestor) 20 mg PO HS [facility] Last Admin: 03/22/18 21:25 Dose: 20 mg - Labs Labs: 03/23/18 06:01 03/23/18 06:01 PT 11.1 SECONDS (9.7-12.2) 03/21/18 23:36 INR 1.0 03/21/18 23:36 APTT 49 SECONDS (21-34) H D 03/23/18 06:01
--- NOTE | 2018-03-23 22:42 | CP.PCM.PN ---
Subjective - Subjective Subjective: dictated Objective - Vital Signs/Intake and Output Vital Signs (last 24 hours): Temp Pulse Resp BP Pulse Ox 98.6 F 74 11 L 135/81 97 03/23/18 20:00 03/23/18 21:52 03/23/18 21:52 03/23/18 21:52 03/23/18 20:35 Intake and Output: 03/23/18 03/24/18 18:59 06:59 Intake Total 1112.8 387.6 Output Total 600 700 Balance 512.8 -312.4 - Medications Medications: Current Medications Aspirin (Ecotrin) 81 mg PO DAILY [facility] Last Admin: 03/23/18 09:36 Dose: 81 mg Clopidogrel Bisulfate (Plavix) 75 mg PO DAILY [facility] Last Admin: 03/23/18 09:36 Dose: 75 mg Docusate Sodium (Colace) 100 mg PO BID [facility] Last Admin: 03/23/18 17:28 Dose: Not Given Glipizide (Glucotrol) 10 mg PO ACB [facility] Last Admin: 03/23/18 08:44 Dose: 10 mg Heparin Sodium/Sodium Chloride (Heparin 81140 Units/250ml 1/2 Normal Saline) 25,000 units in 250 mls @ 8.981 mls/hr IV .Q24H PRN; Protocol PRN Reason: PROTOCOL Last Admin: 03/23/18 20:30 Dose: 12 units/kg/hr, 8.981 mls/hr Influenza Virus Vaccine (Fluzone Quad 8216-5050) 60 mcg IM .ONCE ONE Stop: 03/24/18 10:01 Insulin Human Regular (Novolin R) 0 unit SC [facility]; Protocol Last Admin: 03/23/18 21:53 Dose: Not Given Lamotrigine (Lamictal) 25 mg PO BID [facility] Last Admin: 03/23/18 17:29 Dose: 25 mg Metoprolol Tartrate (Lopressor) 12.5 mg PO BID [facility] Last Admin: 03/23/18 17:29 Dose: 12.5 mg Rosuvastatin Calcium (Crestor) 20 mg PO [facility] Last Admin: 03/23/18 21:53 Dose: 20 mg - Labs Labs: 03/23/18 06:01 03/23/18 06:01 PT 11.1 SECONDS (9.7-12.2) 03/21/18 23:36 INR 1.0 03/21/18 23:36 APTT 49 SECONDS (21-34) H D 03/23/18 06:01
--- NOTE | 2018-03-24 03:26 | PN ---
DATE: 03/23/2018 SUBJECTIVE: The patient's troponin has started trending downwards after a peak level of 9.35. The patient has no chest pain, no shortness of breath. The patient is for cardiac cath. PHYSICAL EXAMINATION: VITAL SIGNS: BP 135/81, pulse 77, respiratory rate 20, and temperature 98. LUNGS: Clear. CARDIOVASCULAR SYSTEM: S1 and S2 are regular. ABDOMEN: Soft. ASSESSMENT: 1. Coronary artery disease, acute myocardial infarction, for cardiac catheterization in the morning. 2. Diabetes. 3. Hypertension. PLAN: Medical management. Monitor the patient. Patricio Sidhu MD
[2018-03-24 06:35] LABS: PROTHROMBIN TIME 11.2 SECONDS (9.7-12.2)
[2018-03-24 06:41] LABS: BASO % 0.3 % (0.0-2.0); EOS # 0.1 K/uL (0.0-0.7); EOS % 1.6 % (0.0-4.0); LYMPH # 1.2 K/uL (1.0-4.3); LYMPH % 17.9 % (20.0-40.0); MEAN CELL VOLUME 98.6 fL (80.0-94.0); MEAN CORPUSCULAR HEMOGLOBIN 34.5 pg (27.0-31.0); MEAN PLATELET VOLUME 9.1 fL (7.2-11.7); MONO # 0.5 K/uL (0.0-0.8); MONO % 8.4 % (0.0-10.0); NEUT # 4.6 K/uL (1.8-7.0); NEUT % 71.8 % (50.0-75.0); RBC 3.76 Mil/uL (4.40-5.90); RED CELL DISTRIBUTION WIDTH 13.2 % (11.5-14.5); WHITE BLOOD COUNT 6.4 K/uL (4.8-10.8)
[2018-03-24 06:50] LABS: ALB/GLOB RATIO 1.2 (1.0-2.1); ALBUMIN 3.9 g/dL (3.5-5.0); ALT/SGPT 38 U/L (21-72); AST/SGOT 47 U/L (17-59); BLOOD UREA NITROGEN 13 mg/dL (9-20); CALCIUM 8.8 mg/dl (8.6-10.4); GFR NON-AFRICAN AMERICAN > 60
[2018-03-24] MEDS: (Novolin R) Insulin Human Regular 100 units/ml vial SC SCH ×4 (08:00→21:35)
[2018-03-24] MEDS ORDERED: Influenza Vaccine 60 MCG/0.5 ML SYR (3 yr & up) IM ONE (10:00)
[2018-03-24] MEDS ORDERED: Pneumococcal 23-Valent Vaccine SC ONE (10:00)
--- NOTE | 2018-03-24 10:40 | CT ---
Date of service: 03/24/2018 PROCEDURE: CT HEAD WITHOUT CONTRAST. HISTORY: history of NPH with shunt COMPARISON: None available. TECHNIQUE: Axial computed tomography images were obtained through the head/brain without intravenous contrast. Radiation dose: Total exam DLP = 1260.45 mGy-cm. This CT exam was performed using one or more of the following dose reduction techniques: Automated exposure control, adjustment of the mA and/or kV according to patient size, and/or use of iterative reconstruction technique. FINDINGS: HEMORRHAGE: No intracranial hemorrhage. BRAIN: Wasserman-white matter differentiation is preserved. There is no mass, mass effect or abnormal extra-axial fluid collection. There is no territorial infarction. VENTRICLES: Right-sided trans parietal shunt catheter terminates in the left lateral ventricle. There is moderate diffuse dilatation of the ventricles predominantly involving the occipital and temporal horns. CALVARIUM: Right frontal marty hole. Otherwise normal in appearance PARANASAL SINUSES: Predominantly clear. MASTOID AIR CELLS: Status post right mastoidectomy. The left mastoid air cells are clear. OTHER FINDINGS: None. IMPRESSION: No acute intracranial abnormality. 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
--- NOTE | 2018-03-24 11:16 | CP.CCUPN ---
CCU Subjective - Physician Review Events Since Last Encounter (Free Text): 03/24/18 11:13 no acute events overnight Subjective (Free Text): 03/24/18 11:13 Patient was seen and evaluated this morning. Patient was sitting up in chair and eating. No complaints. Critical Care Time Spent (in minutes): 35 CCU Objective - Vital Signs / Intake & Output Vital Signs (Last 4 hours): Vital Signs Temp Pulse Resp BP Pulse Ox 03/24/18 11:00 78 16 03/24/18 10:14 82 15 131/72 98 03/24/18 10:02 85 13 130/72 84 L 03/24/18 10:01 85 12 89/74 L 92 L 03/24/18 10:00 83 19 96 03/24/18 09:19 80 12 96 03/24/18 08:14 83 129/81 95 03/24/18 08:00 98.5 F 77 11 L 94 L 03/24/18 07:55 75 15 117/73 97 Intake and Output (Last 8hrs): Intake & Output 03/23/18 03/24/18 03/24/18 22:59 06:59 14:59 Intake Total 725.2 375.2 409.4 Output Total 700 750 0 Balance 25.2 -374.8 409.4 Weight 170 lb 14.4 oz Intake: IV 250 Intake, IV Amount 75.2 75.2 9.4 Left Hand 75.2 75.2 9.4 Oral 400 300 400 Output: Urine 700 750 0 Urine, Voided 700 750 0 Other: # Voids Urine, Voided 1 # Bowel Movements 1 1 1 - Physical Exam Head: Positive for: Atraumatic, Normocephalic Pupils: Positive for: PERRL Extroacular Muscles: Positive for: EOMI Conjunctiva: Positive for: Normal Mouth: Positive for: Moist Mucous Membranes Respiratory/Chest: Positive for: Clear to Auscultation Cardiovascular: Positive for: Regular Rate and Rhythm, Normal S1, S2 Abdomen: Positive for: Normal Bowel Sounds. Negative for: Tenderness, Distention Lower Extremity: Positive for: Normal Inspection Neurological: Positive for: GCS=15, CN II-XII Intact, Speech Normal Skin: Positive for: Warm, Dry, Normal Color Psychiatric: Positive for: Alert, Oriented x 3, Normal Insight, Normal Concentration - Medications Active Medications: Active Medications Generic Name Dose Route Start Last Admin Trade Name Freq PRN Reason Stop Dose Admin Aspirin 81 mg 03/22/18 10:00 03/24/18 10:00 Ecotrin PO 81 mg DAILY [facility] Administration Clopidogrel Bisulfate 75 mg 03/22/18 10:00 03/24/18 10:01 Plavix PO 75 mg DAILY [facility] Administration Docusate Sodium 100 mg 03/21/18 18:00 03/24/18 10:00 Colace PO Not Given BID [facility] Glipizide 10 mg 03/22/18 07:30 03/24/18 08:01 Glucotrol PO 10 mg ACB [facility] Administration Heparin Sodium/Sodium Chloride 25,000 units in 250 mls @ 8.981 mls/hr 03/21/18 14:58 03/23/18 20:30 Heparin 53140 Units/250ml 1/2 Normal Saline IV 12 units/kg/hr .Q24H PRN 8.981 mls/hr PROTOCOL Administration Protocol 12 UNITS/KG/HR Insulin Human Regular 0 unit 03/21/18 11:30 03/24/18 08:00 Novolin R SC Not Given ACHS [facility] Protocol Lamotrigine 25 mg 03/21/18 18:00 03/24/18 10:01 Lamictal PO 25 mg BID [facility] Administration Metoprolol Tartrate 12.5 mg 03/21/18 15:00 03/24/18 10:04 Lopressor PO 12.5 mg BID [facility] Administration Rosuvastatin Calcium 20 mg 03/21/18 22:00 03/23/18 21:53 Crestor PO 20 mg HS [facility] Administration - Patient Studies Lab Studies: Microbiology Studies 03/21/18 Unknown MRSA Culture (Admit) - Final Nose MRSA NOT DETECTED Lab Studies 03/24/18 03/24/18 03/24/18 Range/Units 07:26 06:24 06:24 WBC (4.8-10.8) K/uL RBC (4.40-5.90) Mil/uL Hgb (12.0-18.0) g/dL Hct (35.0-51.0) % MCV (80.0-94.0) fL MCH (27.0-31.0) pg MCHC (33.0-37.0) g/dL RDW (11.5-14.5) % Plt Count (130-400) K/uL MPV (7.2-11.7) fL Neut % (Auto) (50.0-75.0) % Lymph % (Auto) (20.0-40.0) % [place] % (Auto) (0.0-10.0) % Eos % (Auto) (0.0-4.0) % Baso % (Auto) (0.0-2.0) % Neut # (Auto) (1.8-7.0) K/uL Lymph # (Auto) (1.0-4.3) K/uL [place] # (Auto) (0.0-0.8) K/uL Eos # (Auto) (0.0-0.7) K/uL Baso # (Auto) (0.0-0.2) K/uL PT 11.2 (9.7-12.2) SECONDS INR 1.0 APTT 47 H (21-34) SECONDS Sodium 135 (132-148) mmol/L Potassium 4.2 (3.6-5.2) mmol/L Chloride 106 (98-107) mmol/L Carbon Dioxide 24 (22-30) mmol/L Anion Gap 10 (10-20) BUN 13 (9-20) mg/dL Creatinine 0.6 L (0.8-1.5) mg/dL Est GFR ( Amer) > 60 Est GFR (Non-Af Amer) > 60 POC Glucose (mg/dL) 137 H (65-110) mg/dL Random Glucose 145 H (75-110) mg/dL Calcium 8.8 (8.6-10.4) mg/dl Phosphorus 3.0 (2.5-4.5) mg/dL Magnesium 2.0 (1.6-2.3) mg/dL Total Bilirubin 0.4 (0.2-1.3) mg/dL AST 47 (17-59) U/L ALT 38 (21-72) U/L Alkaline Phosphatase 75 (38-126) U/L Total Protein 7.0 (6.3-8.3) g/dL Albumin 3.9 (3.5-5.0) g/dL Globulin 3.1 (2.2-3.9) gm/dL Albumin/Globulin Ratio 1.2 (1.0-2.1) 03/24/18 03/23/18 03/23/18 Range/Units 06:24 21:20 16:28 WBC 6.4 (4.8-10.8) K/uL RBC 3.76 L (4.40-5.90) Mil/uL Hgb 13.0 (12.0-18.0) g/dL Hct 37.1 (35.0-51.0) % MCV 98.6 H (80.0-94.0) fL MCH 34.5 H (27.0-31.0) pg MCHC 35.0 (33.0-37.0) g/dL RDW 13.2 (11.5-14.5) % Plt Count 204 (130-400) K/uL MPV 9.1 (7.2-11.7) fL Neut % (Auto) 71.8 (50.0-75.0) % Lymph % (Auto) 17.9 L (20.0-40.0) % [place] % (Auto) 8.4 (0.0-10.0) % Eos % (Auto) 1.6 (0.0-4.0) % Baso % (Auto) 0.3 (0.0-2.0) % Neut # (Auto) 4.6 (1.8-7.0) K/uL Lymph # (Auto) 1.2 (1.0-4.3) K/uL [place] # (Auto) 0.5 (0.0-0.8) K/uL Eos # (Auto) 0.1 (0.0-0.7) K/uL Baso # (Auto) 0.0 (0.0-0.2) K/uL PT (9.7-12.2) SECONDS INR APTT (21-34) SECONDS Sodium (132-148) mmol/L Potassium (3.6-5.2) mmol/L Chloride (98-107) mmol/L Carbon Dioxide (22-30) mmol/L Anion Gap (10-20) BUN (9-20) mg/dL Creatinine (0.8-1.5) mg/dL Est GFR ( Amer) Est GFR (Non-Af Amer) POC Glucose (mg/dL) 128 H 102 (65-110) mg/dL Random Glucose (75-110) mg/dL Calcium (8.6-10.4) mg/dl Phosphorus (2.5-4.5) mg/dL Magnesium (1.6-2.3) mg/dL Total Bilirubin (0.2-1.3) mg/dL AST (17-59) U/L ALT (21-72) U/L Alkaline Phosphatase (38-126) U/L Total Protein (6.3-8.3) g/dL Albumin (3.5-5.0) g/dL Globulin (2.2-3.9) gm/dL Albumin/Globulin Ratio (1.0-2.1) 03/23/18 03/22/18 03/22/18 Range/Units 07:25 21:10 16:05 WBC (4.8-10.8) K/uL RBC (4.40-5.90) Mil/uL Hgb (12.0-18.0) g/dL Hct (35.0-51.0) % MCV (80.0-94.0) fL MCH (27.0-31.0) pg MCHC (33.0-37.0) g/dL RDW (11.5-14.5) % Plt Count (130-400) K/uL MPV (7.2-11.7) fL Neut % (Auto) (50.0-75.0) % Lymph % (Auto) (20.0-40.0) % [place] % (Auto) (0.0-10.0) % Eos % (Auto) (0.0-4.0) % Baso % (Auto) (0.0-2.0) % Neut # (Auto) (1.8-7.0) K/uL Lymph # (Auto) (1.0-4.3) K/uL [place] # (Auto) (0.0-0.8) K/uL Eos # (Auto) (0.0-0.7) K/uL Baso # (Auto) (0.0-0.2) K/uL PT (9.7-12.2) SECONDS INR APTT (21-34) SECONDS Sodium (132-148) mmol/L Potassium (3.6-5.2) mmol/L Chloride (98-107) mmol/L Carbon Dioxide (22-30) mmol/L Anion Gap (10-20) BUN (9-20) mg/dL Creatinine (0.8-1.5) mg/dL Est GFR ( Amer) Est GFR (Non-Af Amer) POC Glucose (mg/dL) 161 H 144 H 135 H (65-110) mg/dL Random Glucose (75-110) mg/dL Calcium (8.6-10.4) mg/dl Phosphorus (2.5-4.5) mg/dL Magnesium (1.6-2.3) mg/dL Total Bilirubin (0.2-1.3) mg/dL AST (17-59) U/L ALT (21-72) U/L Alkaline Phosphatase (38-126) U/L Total Protein (6.3-8.3) g/dL Albumin (3.5-5.0) g/dL Globulin (2.2-3.9) gm/dL Albumin/Globulin Ratio (1.0-2.1) 03/22/18 03/22/18 Range/Units 11:10 07:13 WBC (4.8-10.8) K/uL RBC (4.40-5.90) Mil/uL Hgb (12.0-18.0) g/dL Hct (35.0-51.0) % MCV (80.0-94.0) fL MCH (27.0-31.0) pg MCHC (33.0-37.0) g/dL RDW (11.5-14.5) % Plt Count (130-400) K/uL MPV (7.2-11.7) fL Neut % (Auto) (50.0-75.0) % Lymph % (Auto) (20.0-40.0) % [place] % (Auto) (0.0-10.0) % Eos % (Auto) (0.0-4.0) % Baso % (Auto) (0.0-2.0) % Neut # (Auto) (1.8-7.0) K/uL Lymph # (Auto) (1.0-4.3) K/uL [place] # (Auto) (0.0-0.8) K/uL Eos # (Auto) (0.0-0.7) K/uL Baso # (Auto) (0.0-0.2) K/uL PT (9.7-12.2) SECONDS INR APTT (21-34) SECONDS Sodium (132-148) mmol/L Potassium (3.6-5.2) mmol/L Chloride (98-107) mmol/L Carbon Dioxide (22-30) mmol/L Anion Gap (10-20) BUN (9-20) mg/dL Creatinine (0.8-1.5) mg/dL Est GFR ( Amer) Est GFR (Non-Af Amer) POC Glucose (mg/dL) 151 H 158 H (65-110) mg/dL Random Glucose (75-110) mg/dL Calcium (8.6-10.4) mg/dl Phosphorus (2.5-4.5) mg/dL Magnesium (1.6-2.3) mg/dL Total Bilirubin (0.2-1.3) mg/dL AST (17-59) U/L ALT (21-72) U/L Alkaline Phosphatase (38-126) U/L Total Protein (6.3-8.3) g/dL Albumin (3.5-5.0) g/dL Globulin (2.2-3.9) gm/dL Albumin/Globulin Ratio (1.0-2.1) Laboratory Results - last 24 hr 03/22/18 03/22/18 03/22/18 07:13 11:10 16:05 WBC RBC Hgb Hct MCV MCH MCHC RDW Plt Count MPV Neut % (Auto) Lymph % (Auto) [place] % (Auto) Eos % (Auto) Baso % (Auto) Neut # (Auto) Lymph # (Auto) [place] # (Auto) Eos # (Auto) Baso # (Auto) PT INR APTT Sodium Potassium Chloride Carbon Dioxide Anion Gap BUN Creatinine Est GFR ( Amer) Est GFR (Non-Af Amer) POC Glucose (mg/dL) 158 H 151 H 135 H Random Glucose Calcium Phosphorus Magnesium Total Bilirubin AST ALT Alkaline Phosphatase Total Protein Albumin Globulin Albumin/Globulin Ratio 03/22/18 03/23/18 03/23/18 21:10 07:25 16:28 WBC RBC Hgb Hct MCV MCH MCHC RDW Plt Count MPV Neut % (Auto) Lymph % (Auto) [place] % (Auto) Eos % (Auto) Baso % (Auto) Neut # (Auto) Lymph # (Auto) [place] # (Auto) Eos # (Auto) Baso # (Auto) PT INR APTT Sodium Potassium Chloride Carbon Dioxide Anion Gap BUN Creatinine Est GFR ( Amer) Est GFR (Non-Af Amer) POC Glucose (mg/dL) 144 H 161 H 102 Random Glucose Calcium Phosphorus Magnesium Total Bilirubin AST ALT Alkaline Phosphatase Total Protein Albumin Globulin Albumin/Globulin Ratio 03/23/18 03/24/18 03/24/18 21:20 06:24 06:24 WBC 6.4 RBC 3.76 L Hgb 13.0 Hct 37.1 MCV 98.6 H MCH 34.5 H MCHC 35.0 RDW 13.2 Plt Count 204 MPV 9.1 Neut % (Auto) 71.8 Lymph % (Auto) 17.9 L [place] % (Auto) 8.4 Eos % (Auto) 1.6 Baso % (Auto) 0.3 Neut # (Auto) 4.6 Lymph # (Auto) 1.2 [place] # (Auto) 0.5 Eos # (Auto) 0.1 Baso # (Auto) 0.0 PT 11.2 INR 1.0 APTT 47 H Sodium Potassium Chloride Carbon Dioxide Anion Gap BUN Creatinine Est GFR ( Amer) Est GFR (Non-Af Amer) POC Glucose (mg/dL) 128 H Random Glucose Calcium Phosphorus Magnesium Total Bilirubin AST ALT Alkaline Phosphatase Total Protein Albumin Globulin Albumin/Globulin Ratio 03/24/18 03/24/18 06:24 07:26 WBC RBC Hgb Hct MCV MCH MCHC RDW Plt Count MPV Neut % (Auto) Lymph % (Auto) [place] % (Auto) Eos % (Auto) Baso % (Auto) Neut # (Auto) Lymph # (Auto) [place] # (Auto) Eos # (Auto) Baso # (Auto) PT INR APTT Sodium 135 Potassium 4.2 Chloride 106 Carbon Dioxide 24 Anion Gap 10 BUN 13 Creatinine 0.6 L Est GFR ( Amer) > 60 Est GFR (Non-Af Amer) > 60 POC Glucose (mg/dL) 137 H Random Glucose 145 H Calcium 8.8 Phosphorus 3.0 Magnesium 2.0 Total Bilirubin 0.4 AST 47 ALT 38 Alkaline Phosphatase 75 Total Protein 7.0 Albumin 3.9 Globulin 3.1 Albumin/Globulin Ratio 1.2 Fingerstick Blood Sugar Results: 137 Review of Systems - Review of Systems All systems: reviewed and no additional remarkable complaints except Critical Care Progress Note - Nutrition Nutrition: Nutrition Category Date Time Status NPO Diet [DIET] Diets 03/24/18 Lunch Active Assessment/Plan - Assessment and Plan (Free Text) Assessment: This is a 62-year-old male admitted with a non-ST elevation DE Neuro: - No acute issues - A&Ox3 - Monitor Cardiovascular: - Elevated troponin level noted. - Asymptomatic now. - Will continue the current treatment. - Cardiology follow-up. - Possible angiogram. - Continue the antiplatelet is beta blockers and will follow-up the patient - Monitor the troponin level Pulm: - No acute issues - Monitor GI: - Ppx: Protonix 40mg IV daily - No acute issues - Regular diet - NPO after lunch - Colace 100mg PO BID Renal: - No acute issues - Monitor CMP, Mag, Phos ID: - No acute issues - Monitor CBC with Diff PPx: - GI: Protonix 40mg IV daily - DVT: Heparin drip Patient seen and case discussed in detail with Dr. Yoandy Shah PGY1
[2018-03-24] MEDS ORDERED: Midazolam 2 MG/2 ML VIAL ONE (18:03)
[2018-03-24] MEDS ORDERED: Verapamil 2 ML ONE ×2 (18:16→18:28)
[2018-03-24] MEDS ORDERED: Lidocaine 2 Grams in D5W 0 MG/0 ML BAG IV ONE (18:19)
[2018-03-24] MEDS ORDERED: Nitroglycerin 50mg in D5W 50 MG/250 ML BOTTLE IV ONE (18:22)
[2018-03-24] MEDS: Sodium Chloride 0.9% 1,000 ML IV SCH (19:03)
[2018-03-24] MEDS: Heparin25000 units/250ml 1/2NS 25,000 UNITS/250 ML BAG IV PRN (21:00)
--- NOTE | 2018-03-24 23:18 | CP.PCM.PN ---
Subjective - Subjective Subjective: dictated Objective - Vital Signs/Intake and Output Vital Signs (last 24 hours): Temp Pulse Resp BP Pulse Ox 97.3 F L 82 18 102/75 94 L 03/24/18 19:00 03/24/18 20:00 03/24/18 20:00 03/24/18 19:56 03/24/18 20:00 Intake and Output: 03/24/18 03/25/18 18:59 06:59 Intake Total 639.4 180 Output Total 0 350 Balance 639.4 -170 - Medications Medications: Current Medications Aspirin (Ecotrin) 81 mg PO DAILY [facility] Last Admin: 03/24/18 10:00 Dose: 81 mg Clopidogrel Bisulfate (Plavix) 75 mg PO DAILY [facility] Last Admin: 03/24/18 10:01 Dose: 75 mg Docusate Sodium (Colace) 100 mg PO BID [facility] Last Admin: 03/24/18 19:00 Dose: Not Given Famotidine (Pepcid) 20 mg IVP Q12 [facility] Last Admin: 03/24/18 21:29 Dose: 20 mg Glipizide (Glucotrol) 10 mg PO ACB [facility] Last Admin: 03/24/18 08:01 Dose: 10 mg Sodium Chloride (Sodium Chloride 0.9%) 1,000 mls @ 80 mls/hr IV .[id number] [facility] Last Admin: 03/24/18 19:03 Dose: 80 mls/hr Heparin Sodium/Sodium Chloride (Heparin 05383 Units/250ml 1/2 Normal Saline) 25,000 units in 250 mls @ 9.302 mls/hr IV .Q24H PRN; Protocol PRN Reason: PROTOCOL Last Admin: 03/24/18 21:00 Dose: 12 units/kg/hr, 9.302 mls/hr Insulin Human Regular (Novolin R) 0 unit SC ACHS [facility]; Protocol Last Admin: 03/24/18 21:35 Dose: Not Given Lamotrigine (Lamictal) 25 mg PO BID [facility] Last Admin: 03/24/18 19:27 Dose: 25 mg Metoprolol Tartrate (Lopressor) 12.5 mg PO BID [facility] Last Admin: 03/24/18 19:27 Dose: 12.5 mg Rosuvastatin Calcium (Crestor) 20 mg PO HS [facility] Last Admin: 03/24/18 21:28 Dose: 20 mg - Labs Labs: 03/24/18 06:24 03/24/18 06:24 PT 11.2 SECONDS (9.7-12.2) 03/24/18 06:24 INR 1.0 03/24/18 06:24 APTT 47 SECONDS (21-34) H 03/24/18 06:24
--- NOTE | 2018-03-25 02:31 | PN ---
DATE: 03/24/2018 SUBJECTIVE: Darrin is for cardiac cath that will be at 5 p.m. PHYSICAL EXAMINATION: VITAL SIGNS: BP 102/75, pulse 82, respiratory rate 16, temperature 98. LUNGS: Clear. CARDIOVASCULAR SYSTEM: S1 and S2 are regular. ABDOMEN: Soft, nontender. Bowel sounds are positive. ASSESSMENT: 1. Acute myocardial infarction, for cardiac catheterization. 2. Diabetes. 3. Hypertension. 4. Hyperlipidemia. PLAN: Cardiac cath. Monitor the patient. Patricio Sidhu MD
[2018-03-25 05:28] LABS: BASO % 0.4 % (0.0-2.0); EOS # 0.1 K/uL (0.0-0.7); HEMOGLOBIN 12.5 g/dL (12.0-18.0); LYMPH % 16.9 % (20.0-40.0); MEAN CELL VOLUME 99.5 fL (80.0-94.0); MEAN CORPUSCULAR HEMOGLOBIN 34.4 pg (27.0-31.0); MEAN CORPUSCULAR HGB CONC 34.6 g/dL (33.0-37.0); MEAN PLATELET VOLUME 8.6 fL (7.2-11.7); MONO # 0.6 K/uL (0.0-0.8); NEUT % 70.7 % (50.0-75.0); RBC 3.64 Mil/uL (4.40-5.90); RED CELL DISTRIBUTION WIDTH 13.3 % (11.5-14.5); WHITE BLOOD COUNT 5.6 K/uL (4.8-10.8)
[2018-03-25 05:35] LABS: PROTHROMBIN TIME 11.4 SECONDS (9.7-12.2)
--- NOTE | 2018-03-25 05:53 | CP.PCM.PN ---
Subjective - Date & Time of Evaluation Date of Evaluation: 03/24/18 Time of Evaluation: 20:30 - Subjective Subjective: Patient s/p Cath LAD mid 99% and OM 1 99% lesions For PCI at [place] tomorrow ASA, Plavix, Statins and B blockers for now AC with Lovenox or IV Heparin Objective - Vital Signs/Intake and Output Vital Signs (last 24 hours): Temp Pulse Resp BP Pulse Ox 97.9 F 74 20 137/73 94 L 03/25/18 00:00 03/25/18 01:42 03/25/18 01:42 03/25/18 01:42 03/25/18 01:00 Intake and Output: 03/24/18 03/25/18 18:59 06:59 Intake Total 639.4 1047.0 Output Total 0 750 Balance 639.4 297.0 - Medications Medications: Current Medications Aspirin (Ecotrin) 81 mg PO DAILY [facility] Last Admin: 03/24/18 10:00 Dose: 81 mg Clopidogrel Bisulfate (Plavix) 75 mg PO DAILY [facility] Last Admin: 03/24/18 10:01 Dose: 75 mg Docusate Sodium (Colace) 100 mg PO BID [facility] Last Admin: 03/24/18 19:00 Dose: Not Given Famotidine (Pepcid) 20 mg IVP Q12 [facility] Last Admin: 03/24/18 21:29 Dose: 20 mg Glipizide (Glucotrol) 10 mg PO ACB [facility] Last Admin: 03/24/18 08:01 Dose: 10 mg Sodium Chloride (Sodium Chloride 0.9%) 1,000 mls @ 80 mls/hr IV .[id number] [facility] Last Admin: 03/24/18 19:03 Dose: 80 mls/hr Heparin Sodium/Sodium Chloride (Heparin 76136 Units/250ml 1/2 Normal Saline) 25,000 units in 250 mls @ 9.302 mls/hr IV .Q24H PRN; Protocol PRN Reason: PROTOCOL Last Admin: 03/24/18 21:00 Dose: 12 units/kg/hr, 9.302 mls/hr Insulin Human Regular (Novolin R) 0 unit SC ACHS [facility]; Protocol Last Admin: 03/24/18 21:35 Dose: Not Given Lamotrigine (Lamictal) 25 mg PO BID [facility] Last Admin: 03/24/18 19:27 Dose: 25 mg Metoprolol Tartrate (Lopressor) 12.5 mg PO BID [facility] Last Admin: 03/24/18 19:27 Dose: 12.5 mg Rosuvastatin Calcium (Crestor) 20 mg PO HS [facility] Last Admin: 03/24/18 21:28 Dose: 20 mg - Labs Labs: 03/25/18 05:24 03/24/18 06:24 PT 11.4 SECONDS (9.7-12.2) 03/25/18 05:24 INR 1.0 03/25/18 05:24 APTT 45 SECONDS (21-34) H 03/25/18 05:24
[2018-03-25 05:58] LABS: ALB/GLOB RATIO 1.2 (1.0-2.1); ALBUMIN 3.8 g/dL (3.5-5.0); ALT/SGPT 92 U/L (21-72); AST/SGOT 92 U/L (17-59); BLOOD UREA NITROGEN 12 mg/dL (9-20); CALCIUM 8.8 mg/dl (8.6-10.4); GFR NON-AFRICAN AMERICAN > 60
[2018-03-25] MEDS: Sodium Chloride 0.9% 1,000 ML IV SCH ×3 (07:58→21:33)
[2018-03-25] MEDS: (Novolin R) Insulin Human Regular 100 units/ml vial SC SCH ×4 (07:58→22:14)
--- NOTE | 2018-03-25 09:45 | CP.CCUPN ---
<Daniel Shah - Last Filed: 03/25/18 09:42> CCU Subjective - Physician Review Events Since Last Encounter (Free Text): 03/25/18 09:46 No acute events overnight Subjective (Free Text): 03/25/18 09:42 Patient was seen and evaluated this morning. Patient was sitting up comfortably in chair and eating. No complaints. Patient otherwise denies chest pain, shortness of breath, dizziness, blurred vision, headache, abdominal pain, rash, nausea, vomiting and/or fever. Patient is pending transfer to tertiary hospital for PCI. Critical Care Time Spent (in minutes): 35 CCU Objective - Vital Signs / Intake & Output Vital Signs (Last 4 hours): Vital Signs Temp Pulse Resp BP Pulse Ox 03/25/18 08:30 74 15 130/76 98 03/25/18 08:00 97.4 F L 71 16 98 03/25/18 07:30 75 12 112/93 H 98 03/25/18 07:00 73 18 94 L 03/25/18 06:30 78 17 116/64 03/25/18 06:00 76 17 Intake and Output (Last 8hrs): Intake & Output 03/24/18 03/25/18 03/25/18 22:59 06:59 14:59 Intake Total 658.8 835.2 268.2 Output Total 750 300 350 Balance -91.2 535.2 -81.8 Weight 172 lb 6.424 oz Intake: Intake, IV Amount 338.8 715.2 268.2 Left Hand 320 640 240 Left Proximal Port Hand 18.8 75.2 28.2 Oral 320 120 Output: Urine 750 300 350 Urine, Voided 750 300 350 Other: # Bowel Movements 0 - Physical Exam Head: Positive for: Atraumatic, Normocephalic Pupils: Positive for: PERRL Extroacular Muscles: Positive for: EOMI Conjunctiva: Positive for: Normal Mouth: Positive for: Moist Mucous Membranes Respiratory/Chest: Positive for: Clear to Auscultation Cardiovascular: Positive for: Regular Rate and Rhythm, Normal S1, S2 Abdomen: Positive for: Normal Bowel Sounds. Negative for: Tenderness, Distention Lower Extremity: Positive for: Normal Inspection Neurological: Positive for: GCS=15, CN II-XII Intact, Speech Normal Skin: Positive for: Warm, Dry, Normal Color Psychiatric: Positive for: Alert, Oriented x 3, Normal Insight, Normal Concentr ation - Medications Active Medications: Active Medications Generic Name Dose Route Start Last Admin Trade Name Bossman PRN Reason Stop Dose Admin Aspirin 81 mg 03/22/18 10:00 03/24/18 10:00 Ecotrin PO 81 mg DAILY [facility] Administration Clopidogrel Bisulfate 75 mg 03/22/18 10:00 03/25/18 09:00 Plavix PO 75 mg DAILY [facility]WE[facility] Administration Docusate Sodium 100 mg 03/21/18 18:00 03/25/18 09:00 Colace PO 100 mg BID [facility] Administration Famotidine 20 mg 03/24/18 22:00 03/25/18 09:00 Pepcid IVP 20 mg Q12 [facility] Administration Glipizide 10 mg 03/22/18 07:30 03/25/18 07:30 Glucotrol PO 10 mg ACB [facility] Administration Sodium Chloride 1,000 mls @ 80 mls/hr 03/24/18 18:45 03/25/18 08:52 Sodium Chloride 0.9% IV 80 mls/hr .[id number] [facility] Administration Heparin Sodium/Sodium Chloride 25,000 units in 250 mls @ 9.302 mls/hr 03/24/18 20:24 03/24/18 21:00 Heparin 17041 Units/250ml 1/2 Normal Saline IV 12 units/kg/hr .Q24H PRN 9.302 mls/hr PROTOCOL Administration Protocol 12 UNITS/KG/HR Insulin Human Regular 0 unit 03/21/18 11:30 03/25/18 07:58 Novolin R SC Not Given ACHS [facility] Protocol Lamotrigine 25 mg 03/21/18 18:00 03/25/18 09:00 Lamictal PO 25 mg BID [facility] Administration Metoprolol Tartrate 12.5 mg 03/21/18 15:00 03/25/18 09:00 Lopressor PO 12.5 mg BID [facility]WE[facility] Administration Rosuvastatin Calcium 20 mg 03/21/18 22:00 03/24/18 21:28 Crestor PO 20 mg HS MAXWELL Administration - Patient Studies Lab Studies: Lab Studies 03/25/18 03/25/18 03/25/18 Range/Units 07:28 05:24 05:24 WBC (4.8-10.8) K/uL RBC (4.40-5.90) Mil/uL Hgb (12.0-18.0) g/dL Hct (35.0-51.0) % MCV (80.0-94.0) fL MCH (27.0-31.0) pg MCHC (33.0-37.0) g/dL RDW (11.5-14.5) % Plt Count (130-400) K/uL MPV (7.2-11.7) fL Neut % (Auto) (50.0-75.0) % Lymph % (Auto) (20.0-40.0) % Person % (Auto) (0.0-10.0) % Eos % (Auto) (0.0-4.0) % Baso % (Auto) (0.0-2.0) % Neut # (Auto) (1.8-7.0) K/uL Lymph # (Auto) (1.0-4.3) K/uL Person # (Auto) (0.0-0.8) K/uL Eos # (Auto) (0.0-0.7) K/uL Baso # (Auto) (0.0-0.2) K/uL PT 11.4 (9.7-12.2) SECONDS INR 1.0 APTT 45 H (21-34) SECONDS Sodium 136 (132-148) mmol/L Potassium 4.1 (3.6-5.2) mmol/L Chloride 106 (98-107) mmol/L Carbon Dioxide 25 (22-30) mmol/L Anion Gap 9 L (10-20) BUN 12 (9-20) mg/dL Creatinine 0.6 L (0.8-1.5) mg/dL Est GFR ( Amer) > 60 Est GFR (Non-Af Amer) > 60 POC Glucose (mg/dL) 140 H (65-110) mg/dL Random Glucose 135 H (75-110) mg/dL Calcium 8.8 (8.6-10.4) mg/dl Phosphorus 3.1 (2.5-4.5) mg/dL Magnesium 1.9 (1.6-2.3) mg/dL Total Bilirubin 0.4 (0.2-1.3) mg/dL AST 92 H D (17-59) U/L ALT 92 H D (21-72) U/L Alkaline Phosphatase 75 (38-126) U/L Total Protein 6.9 (6.3-8.3) g/dL Albumin 3.8 (3.5-5.0) g/dL Globulin 3.1 (2.2-3.9) gm/dL Albumin/Globulin Ratio 1.2 (1.0-2.1) 03/25/18 03/24/18 03/24/18 Range/Units 05:24 20:54 11:06 WBC 5.6 (4.8-10.8) K/uL RBC 3.64 L (4.40-5.90) Mil/uL Hgb 12.5 (12.0-18.0) g/dL Hct 36.2 (35.0-51.0) % MCV 99.5 H (80.0-94.0) fL MCH 34.4 H (27.0-31.0) pg MCHC 34.6 (33.0-37.0) g/dL RDW 13.3 (11.5-14.5) % Plt Count 206 (130-400) K/uL MPV 8.6 (7.2-11.7) fL Neut % (Auto) 70.7 (50.0-75.0) % Lymph % (Auto) 16.9 L (20.0-40.0) % Person % (Auto) 10.0 (0.0-10.0) % Eos % (Auto) 2.0 (0.0-4.0) % Baso % (Auto) 0.4 (0.0-2.0) % Neut # (Auto) 4.0 (1.8-7.0) K/uL Lymph # (Auto) 1.0 (1.0-4.3) K/uL Person # (Auto) 0.6 (0.0-0.8) K/uL Eos # (Auto) 0.1 (0.0-0.7) K/uL Baso # (Auto) 0.0 (0.0-0.2) K/uL PT (9.7-12.2) SECONDS INR APTT (21-34) SECONDS Sodium (132-148) mmol/L Potassium (3.6-5.2) mmol/L Chloride (98-107) mmol/L Carbon Dioxide (22-30) mmol/L Anion Gap (10-20) BUN (9-20) mg/dL Creatinine (0.8-1.5) mg/dL Est GFR ( Amer) Est GFR (Non-Af Amer) POC Glucose (mg/dL) 232 H 177 H (65-110) mg/dL Random Glucose (75-110) mg/dL Calcium (8.6-10.4) mg/dl Phosphorus (2.5-4.5) mg/dL Magnesium (1.6-2.3) mg/dL Total Bilirubin (0.2-1.3) mg/dL AST (17-59) U/L ALT (21-72) U/L Alkaline Phosphatase (38-126) U/L Total Protein (6.3-8.3) g/dL Albumin (3.5-5.0) g/dL Globulin (2.2-3.9) gm/dL Albumin/Globulin Ratio (1.0-2.1) 03/23/18 Range/Units 11:18 WBC (4.8-10.8) K/uL RBC (4.40-5.90) Mil/uL Hgb (12.0-18.0) g/dL Hct (35.0-51.0) % MCV (80.0-94.0) fL MCH (27.0-31.0) pg MCHC (33.0-37.0) g/dL RDW (11.5-14.5) % Plt Count (130-400) K/uL MPV (7.2-11.7) fL Neut % (Auto) (50.0-75.0) % Lymph % (Auto) (20.0-40.0) % Person % (Auto) (0.0-10.0) % Eos % (Auto) (0.0-4.0) % Baso % (Auto) (0.0-2.0) % Neut # (Auto) (1.8-7.0) K/uL Lymph # (Auto) (1.0-4.3) K/uL Person # (Auto) (0.0-0.8) K/uL Eos # (Auto) (0.0-0.7) K/uL Baso # (Auto) (0.0-0.2) K/uL PT (9.7-12.2) SECONDS INR APTT (21-34) SECONDS Sodium (132-148) mmol/L Potassium (3.6-5.2) mmol/L Chloride (98-107) mmol/L Carbon Dioxide (22-30) mmol/L Anion Gap (10-20) BUN (9-20) mg/dL Creatinine (0.8-1.5) mg/dL Est GFR ( Amer) Est GFR (Non-Af Amer) POC Glucose (mg/dL) 186 H (65-110) mg/dL Random Glucose (75-110) mg/dL Calcium (8.6-10.4) mg/dl Phosphorus (2.5-4.5) mg/dL Magnesium (1.6-2.3) mg/dL Total Bilirubin (0.2-1.3) mg/dL AST (17-59) U/L ALT (21-72) U/L Alkaline Phosphatase (38-126) U/L Total Protein (6.3-8.3) g/dL Albumin (3.5-5.0) g/dL Globulin (2.2-3.9) gm/dL Albumin/Globulin Ratio (1.0-2.1) Laboratory Results - last 24 hr 03/23/18 03/24/18 03/24/18 11:18 11:06 20:54 WBC RBC Hgb Hct MCV MCH MCHC RDW Plt Count MPV Neut % (Auto) Lymph % (Auto) Person % (Auto) Eos % (Auto) Baso % (Auto) Neut # (Auto) Lymph # (Auto) Person # (Auto) Eos # (Auto) Baso # (Auto) PT INR APTT Sodium Potassium Chloride Carbon Dioxide Anion Gap BUN Creatinine Est GFR ( Amer) Est GFR (Non-Af Amer) POC Glucose (mg/dL) 186 H 177 H 232 H Random Glucose Calcium Phosphorus Magnesium Total Bilirubin AST ALT Alkaline Phosphatase Total Protein Albumin Globulin Albumin/Globulin Ratio 03/25/18 03/25/18 03/25/18 05:24 05:24 05:24 WBC 5.6 RBC 3.64 L Hgb 12.5 Hct 36.2 MCV 99.5 H MCH 34.4 H MCHC 34.6 RDW 13.3 Plt Count 206 MPV 8.6 Neut % (Auto) 70.7 Lymph % (Auto) 16.9 L Person % (Auto) 10.0 Eos % (Auto) 2.0 Baso % (Auto) 0.4 Neut # (Auto) 4.0 Lymph # (Auto) 1.0 Person # (Auto) 0.6 Eos # (Auto) 0.1 Baso # (Auto) 0.0 PT 11.4 INR 1.0 APTT 45 H Sodium 136 Potassium 4.1 Chloride 106 Carbon Dioxide 25 Anion Gap 9 L BUN 12 Creatinine 0.6 L Est GFR ( Amer) > 60 Est GFR (Non-Af Amer) > 60 POC Glucose (mg/dL) Random Glucose 135 H Calcium 8.8 Phosphorus 3.1 Magnesium 1.9 Total Bilirubin 0.4 AST 92 H D ALT 92 H D Alkaline Phosphatase 75 Total Protein 6.9 Albumin 3.8 Globulin 3.1 Albumin/Globulin Ratio 1.2 03/25/18 07:28 WBC RBC Hgb Hct MCV MCH MCHC RDW Plt Count MPV Neut % (Auto) Lymph % (Auto) Person % (Auto) Eos % (Auto) Baso % (Auto) Neut # (Auto) Lymph # (Auto) Person # (Auto) Eos # (Auto) Baso # (Auto) PT INR APTT Sodium Potassium Chloride Carbon Dioxide Anion Gap BUN Creatinine Est GFR ( Amer) Est GFR (Non-Af Amer) POC Glucose (mg/dL) 140 H Random Glucose Calcium Phosphorus Magnesium Total Bilirubin AST ALT Alkaline Phosphatase Total Protein Albumin Globulin Albumin/Globulin Ratio Fingerstick Blood Sugar Results: 140 Review of Systems - Review of Systems All systems: reviewed and no additional remarkable complaints except Critical Care Progress Note - Nutrition Nutrition: Nutrition Category Date Time Status Heart Healthy Diet [DIET] Diets 03/25/18 Breakfast Active Assessment/Plan - Assessment and Plan (Free Text) Assessment: This is a 62-year-old male with PMH Dementia, HTN, HLD, VPS (2009) hydrocephalus, seizures, nephrolithiasis who care in for severe sub-sternal chest pain who was admitted with a non-ST elevation UT. Patient on therapeutic heparin drip. S/P cath with Dr. Medeiros: LAD 99% occlusion and OM 99% occlusion. Neuro: - History of dementia - Continue home meds - A&Ox3 - Monitor Cardiovascular: - Elevated troponin level noted. - Asymptomatic now. - Cardiology consulted: Dr. Medeiros (recommendation appreciated) - Pending transfer for PCI - Continue the antiplatelet is beta blockers Pulm: - No acute issues - Monitor GI: - Ppx: Protonix 40mg IV daily - No acute issues - Regular diet - Colace 100mg PO BID Renal: - No acute issues - Monitor CMP, Mag, Phos ID: - No acute issues - Monitor CBC with Diff PPx: - GI: Protonix 40mg IV daily - DVT: Heparin drip Patient seen and case discussed in detail with Dr. Amy Shah PGY1 <Arias Reyes - Last Filed: 03/25/18 16:56> CCU Objective - Vital Signs / Intake & Output Vital Signs (Last 4 hours): Vital Signs Pulse Resp BP Pulse Ox 03/25/18 14:08 79 18 131/76 98 03/25/18 14:00 79 19 99 03/25/18 13:00 76 11 L 97 03/25/18 12:49 102 H 14 141/82 75 L Intake and Output (Last 8hrs): Intake & Output 03/25/18 03/25/18 03/25/18 06:59 14:59 22:59 Intake Total 835.2 1715.2 Output Total 300 650 Balance 535.2 1065.2 Weight 172 lb 6.424 oz Intake: Intake, IV Amount 715.2 715.2 Left Hand 640 640 Left Proximal Port Hand 75.2 75.2 Oral 120 1000 Output: Urine 300 650 Urine, Voided 300 650 - Medications Active Medications: Active Medications Generic Name Dose Route Start Last Admin Trade Name Freq PRN Reason Stop Dose Admin Aspirin 81 mg 03/22/18 10:00 03/25/18 10:26 Ecotrin PO 81 mg DAILY MAXWELL Administration Clopidogrel Bisulfate 75 mg 03/22/18 10:00 03/25/18 09:00 Plavix PO 75 mg DAILY MAXWELL Administration Docusate Sodium 100 mg 03/21/18 18:00 03/25/18 09:00 Colace PO 100 mg BID MAXWELL Administration Famotidine 20 mg 03/24/18 22:00 03/25/18 09:00 Pepcid IVP 20 mg Q12 [facility]WELL Administration Glipizide 10 mg 03/22/18 07:30 03/25/18 07:30 Glucotrol PO 10 mg ACB MAXWELL Administration Sodium Chloride 1,000 mls @ 80 mls/hr 03/24/18 18:45 03/25/18 08:52 Sodium Chloride 0.9% IV 80 mls/hr .[id number] [facility] Administration Heparin Sodium/Sodium Chloride 25,000 units in 250 mls @ 9.302 mls/hr 03/24/18 20:24 03/24/18 21:00 Heparin 12624 Units/250ml 1/2 Normal Saline IV 12 units/kg/hr .Q24H PRN 9.302 mls/hr PROTOCOL Administration Protocol 12 UNITS/KG/HR Insulin Human Regular 0 unit 03/21/18 11:30 03/25/18 12:00 Novolin R SC 3 u ACHS MAXWELL Administration Protocol Lamotrigine 25 mg 03/21/18 18:00 03/25/18 09:00 Lamictal PO 25 mg BID [facility]WELL Administration Metoprolol Tartrate 12.5 mg 03/21/18 15:00 03/25/18 09:00 Lopressor PO 12.5 mg BID [facility]WELL Administration Rosuvastatin Calcium 20 mg 03/21/18 22:00 03/24/18 21:28 Crestor PO 20 mg HS MAXWELL Administration - Patient Studies Lab Studies: Lab Studies 03/25/18 03/25/18 03/25/18 Range/Units 07:28 05:24 05:24 WBC (4.8-10.8) K/uL RBC (4.40-5.90) Mil/uL Hgb (12.0-18.0) g/dL Hct (35.0-51.0) % MCV (80.0-94.0) fL MCH (27.0-31.0) pg MCHC (33.0-37.0) g/dL RDW (11.5-14.5) % Plt Count (130-400) K/uL MPV (7.2-11.7) fL Neut % (Auto) (50.0-75.0) % Lymph % (Auto) (20.0-40.0) % Person % (Auto) (0.0-10.0) % Eos % (Auto) (0.0-4.0) % Baso % (Auto) (0.0-2.0) % Neut # (Auto) (1.8-7.0) K/uL Lymph # (Auto) (1.0-4.3) K/uL Person # (Auto) (0.0-0.8) K/uL Eos # (Auto) (0.0-0.7) K/uL Baso # (Auto) (0.0-0.2) K/uL PT 11.4 (9.7-12.2) SECONDS INR 1.0 APTT 45 H (21-34) SECONDS Sodium 136 (132-148) mmol/L Potassium 4.1 (3.6-5.2) mmol/L Chloride 106 (98-107) mmol/L Carbon Dioxide 25 (22-30) mmol/L Anion Gap 9 L (10-20) BUN 12 (9-20) mg/dL Creatinine 0.6 L (0.8-1.5) mg/dL Est GFR ( Amer) > 60 Est GFR (Non-Af Amer) > 60 POC Glucose (mg/dL) 140 H (65-110) mg/dL Random Glucose 135 H (75-110) mg/dL Calcium 8.8 (8.6-10.4) mg/dl Phosphorus 3.1 (2.5-4.5) mg/dL Magnesium 1.9 (1.6-2.3) mg/dL Total Bilirubin 0.4 (0.2-1.3) mg/dL AST 92 H D (17-59) U/L ALT 92 H D (21-72) U/L Alkaline Phosphatase 75 (38-126) U/L Total Protein 6.9 (6.3-8.3) g/dL Albumin 3.8 (3.5-5.0) g/dL Globulin 3.1 (2.2-3.9) gm/dL Albumin/Globulin Ratio 1.2 (1.0-2.1) 03/25/18 03/24/18 Range/Units 05:24 20:54 WBC 5.6 (4.8-10.8) K/uL RBC 3.64 L (4.40-5.90) Mil/uL Hgb 12.5 (12.0-18.0) g/dL Hct 36.2 (35.0-51.0) % MCV 99.5 H (80.0-94.0) fL MCH 34.4 H (27.0-31.0) pg MCHC 34.6 (33.0-37.0) g/dL RDW 13.3 (11.5-14.5) % Plt Count 206 (130-400) K/uL MPV 8.6 (7.2-11.7) fL Neut % (Auto) 70.7 (50.0-75.0) % Lymph % (Auto) 16.9 L (20.0-40.0) % Person % (Auto) 10.0 (0.0-10.0) % Eos % (Auto) 2.0 (0.0-4.0) % Baso % (Auto) 0.4 (0.0-2.0) % Neut # (Auto) 4.0 (1.8-7.0) K/uL Lymph # (Auto) 1.0 (1.0-4.3) K/uL Person # (Auto) 0.6 (0.0-0.8) K/uL Eos # (Auto) 0.1 (0.0-0.7) K/uL Baso # (Auto) 0.0 (0.0-0.2) K/uL PT (9.7-12.2) SECONDS INR APTT (21-34) SECONDS Sodium (132-148) mmol/L Potassium (3.6-5.2) mmol/L Chloride (98-107) mmol/L Carbon Dioxide (22-30) mmol/L Anion Gap (10-20) BUN (9-20) mg/dL Creatinine (0.8-1.5) mg/dL Est GFR ( Amer) Est GFR (Non-Af Amer) POC Glucose (mg/dL) 232 H (65-110) mg/dL Random Glucose (75-110) mg/dL Calcium (8.6-10.4) mg/dl Phosphorus (2.5-4.5) mg/dL Magnesium (1.6-2.3) mg/dL Total Bilirubin (0.2-1.3) mg/dL AST (17-59) U/L ALT (21-72) U/L Alkaline Phosphatase (38-126) U/L Total Protein (6.3-8.3) g/dL Albumin (3.5-5.0) g/dL Globulin (2.2-3.9) gm/dL Albumin/Globulin Ratio (1.0-2.1) Laboratory Results - last 24 hr 03/24/18 03/25/18 03/25/18 20:54 05:24 05:24 WBC 5.6 RBC 3.64 L Hgb 12.5 Hct 36.2 MCV 99.5 H MCH 34.4 H MCHC 34.6 RDW 13.3 Plt Count 206 MPV 8.6 Neut % (Auto) 70.7 Lymph % (Auto) 16.9 L Person % (Auto) 10.0 Eos % (Auto) 2.0 Baso % (Auto) 0.4 Neut # (Auto) 4.0 Lymph # (Auto) 1.0 Person # (Auto) 0.6 Eos # (Auto) 0.1 Baso # (Auto) 0.0 PT 11.4 INR 1.0 APTT 45 H Sodium Potassium Chloride Carbon Dioxide Anion Gap BUN Creatinine Est GFR ( Amer) Est GFR (Non-Af Amer) POC Glucose (mg/dL) 232 H Random Glucose Calcium Phosphorus Magnesium Total Bilirubin AST ALT Alkaline Phosphatase Total Protein Albumin Globulin Albumin/Globulin Ratio 03/25/18 03/25/18 05:24 07:28 WBC RBC Hgb Hct MCV MCH MCHC RDW Plt Count MPV Neut % (Auto) Lymph % (Auto) Person % (Auto) Eos % (Auto) Baso % (Auto) Neut # (Auto) Lymph # (Auto) Person # (Auto) Eos # (Auto) Baso # (Auto) PT INR APTT Sodium 136 Potassium 4.1 Chloride 106 Carbon Dioxide 25 Anion Gap 9 L BUN 12 Creatinine 0.6 L Est GFR ( Amer) > 60 Est GFR (Non-Af Amer) > 60 POC Glucose (mg/dL) 140 H Random Glucose 135 H Calcium 8.8 Phosphorus 3.1 Magnesium 1.9 Total Bilirubin 0.4 AST 92 H D ALT 92 H D Alkaline Phosphatase 75 Total Protein 6.9 Albumin 3.8 Globulin 3.1 Albumin/Globulin Ratio 1.2 Critical Care Progress Note - Nutrition Nutrition: Nutrition Category Date Time Status Heart Healthy Diet [DIET] Diets 03/25/18 Breakfast Active Attending/Attestation - Attestation I have personally seen and examined this patient.: Yes I have fully participated in the care of the patient.: Yes I have reviewed all pertinent clinical information: Yes Notes (Text): 03/25/18 16:15 I have seen and examined the patient. Medical records, lab studies, and imaging were reviewed by me and a management plan was formulated on multidisciplinary rounds with resident Dr. Shah. I agree with their documented assessment and plan. Patient to go to cardiac cath tomorrow at [facility]. No chest pain, clinically stable. Critical Care Time 35 minutes. Multi-disciplinary rounds were performed with house staff, nursing, speech therapy, respiratory therapy, pharmacy and nutrition with integrated input from the primary team/attending and other consulting services. The documented time is cumulative and includes review of patient data/exams/labs/chart review and examination of the patient on rounds and throughout the day; time is exclusive of any procedures or teaching time.
[2018-03-25] MEDS ORDERED: Enoxaparin 30 mg Syringe SC SCH (10:00)
[2018-03-25] MEDS: Heparin25000 units/250ml 1/2NS 25,000 UNITS/250 ML BAG IV PRN (21:33)
--- NOTE | 2018-03-25 23:06 | CP.PCM.PN ---
Subjective - Subjective Subjective: dictated Objective - Vital Signs/Intake and Output Vital Signs (last 24 hours): Temp Pulse Resp BP Pulse Ox 98.2 F 82 10 L 142/65 96 03/25/18 20:00 03/25/18 22:00 03/25/18 22:00 03/25/18 21:57 03/25/18 22:00 Intake and Output: 03/25/18 03/26/18 18:59 06:59 Intake Total 3082.8 847.6 Output Total 1050 350 Balance 2032.8 497.6 - Medications Medications: Current Medications Aspirin (Ecotrin) 81 mg PO DAILY [facility] Last Admin: 03/25/18 10:26 Dose: 81 mg Clopidogrel Bisulfate (Plavix) 75 mg PO DAILY [facility] Last Admin: 03/25/18 09:00 Dose: 75 mg Docusate Sodium (Colace) 100 mg PO BID [facility] Last Admin: 03/25/18 18:41 Dose: 100 mg Famotidine (Pepcid) 20 mg IVP Q12 [facility] Last Admin: 03/25/18 21:33 Dose: 20 mg Glipizide (Glucotrol) 10 mg PO ACB [facility] Last Admin: 03/25/18 07:30 Dose: 10 mg Sodium Chloride (Sodium Chloride 0.9%) 1,000 mls @ 80 mls/hr IV .[id number] [facility] Last Admin: 03/25/18 21:33 Dose: 80 mls/hr Heparin Sodium/Sodium Chloride (Heparin 61121 Units/250ml 1/2 Normal Saline) 25,000 units in 250 mls @ 9.302 mls/hr IV .Q24H PRN; Protocol PRN Reason: PROTOCOL Last Admin: 03/25/18 21:33 Dose: 12 units/kg/hr, 9.302 mls/hr Insulin Human Regular (Novolin R) 0 unit SC ACHS [facility]; Protocol Last Admin: 03/25/18 22:14 Dose: Not Given Lamotrigine (Lamictal) 25 mg PO BID [facility] Last Admin: 03/25/18 18:41 Dose: 25 mg Metoprolol Tartrate (Lopressor) 12.5 mg PO BID [facility] Last Admin: 03/25/18 18:41 Dose: 12.5 mg Rosuvastatin Calcium (Crestor) 20 mg PO HS [facility] Last Admin: 03/25/18 21:33 Dose: 20 mg - Labs Labs: 03/25/18 05:24 03/25/18 05:24 PT 11.4 SECONDS (9.7-12.2) 03/25/18 05:24 INR 1.0 03/25/18 05:24 APTT 45 SECONDS (21-34) H 03/25/18 05:24
[2018-03-26 04:02] VITALS: TEMP 98
[2018-03-26 06:04] LABS: BASO % 0.4 % (0.0-2.0); EOS # 0.1 K/uL (0.0-0.7); EOS % 1.5 % (0.0-4.0); HEMOGLOBIN 12.7 g/dL (12.0-18.0); LYMPH # 0.9 K/uL (1.0-4.3); LYMPH % 13.6 % (20.0-40.0); MEAN CELL VOLUME 98.8 fL (80.0-94.0); MEAN CORPUSCULAR HEMOGLOBIN 34.9 pg (27.0-31.0); MEAN CORPUSCULAR HGB CONC 35.4 g/dL (33.0-37.0); MEAN PLATELET VOLUME 9.1 fL (7.2-11.7); MONO # 0.6 K/uL (0.0-0.8); MONO % 9.6 % (0.0-10.0); NEUT # 4.7 K/uL (1.8-7.0); NEUT % 74.9 % (50.0-75.0); RBC 3.63 Mil/uL (4.40-5.90); RED CELL DISTRIBUTION WIDTH 12.8 % (11.5-14.5); WHITE BLOOD COUNT 6.3 K/uL (4.8-10.8)
[2018-03-26 06:10] VITALS: BP 123/69; PULSE 82; RESP 13; O2SAT 94
--- NOTE | 2018-03-26 06:17 | PN ---
PROCEDURE DATE: 03/25/2018 SUBJECTIVE: The patient, Darrin, is here for cardiac cath. Arrangements are to be made. His cardiac cath today was canceled at [facility]. In the meantime, the patient denies any chest pain or shortness of breath. He denies any cough. His sugars are under well control. No nausea or vomiting. PHYSICAL EXAMINATION: VITAL SIGNS: Blood pressure 142/65, pulse rate 82, respiratory rate 18, temperature 98. LUNGS: Clear. CARDIOVASCULAR SYSTEM: S1 and S2 are regular. ABDOMEN: Soft and nontender. Bowel sounds are positive. ASSESSMENT: 1. Coronary artery disease, pending angioplasty. 2. Hypertension. 3. Diabetes. 4. Hyperlipidemia. PLAN: Cardiac angioplasty as soon as arrangements are made. Patricio Sidhu MD
[2018-03-26 06:36] LABS: ALBUMIN 3.8 g/dL (3.5-5.0); ALT/SGPT 99 U/L (21-72); AST/SGOT 64 U/L (17-59); BLOOD UREA NITROGEN 14 mg/dL (9-20); GFR NON-AFRICAN AMERICAN > 60
[2018-03-26 06:41] LABS: ALB/GLOB RATIO 1.2 (1.0-2.1)
[2018-03-26] MEDS ORDERED: Magnesium Sulfate 1 gm/100 mL D5W IVPB ONE (07:35)
[2018-03-26] MEDS ORDERED: Sodium Bicarbonate (8.4%) 50 mEq Vial ONE (07:35)
[2018-03-26] MEDS ORDERED: Calcium Chloride 1000 mg/10 ml Syringe ONE (07:35)
--- NOTE | 2018-03-26 08:17 | PCM.RRT ---
DISPENSING LEAD Nurses Assessment - Situation Date: 03/21/18 Time DISPENSING LEAD was called: 07:30 DISPENSING LEAD Responder Arrival Time:: 07:32 DISPENSING LEAD Location:: [facility]/Surg Room Number: ICU Bed #1 DISPENSING LEAD Reason for Call: Chest Pain, Hypotension, O2 Saturation below 90% DISPENSING LEAD Called By: RN - IV IV Inserted during DISPENSING LEAD?: No - Respiratory DISPENSING LEAD Delivery Method: Intubated Received Nebulizer Treatments: No Was the Patient Ventilated with Bag/Mask 100% O2?: No Secretions Suctioned?: No Was the Patient Intubated?: No Was the Patient Placed on a Ventilator?: No - Medication Medications Administered During DISPENSING LEAD: none - Diagnostic Test Ordered EKG: Yes Chest X-Ray: No CT Scan: No CPR started during DISPENSING LEAD?: No - Vital Signs Vital Signs: Rapid Response Vital Sign Blood Pressure 160/81 Pulse Rate 89 Respiratory Rate 18 Oxygen Saturation 97 - [place] Coma Scale Coma Scale Eye Opening: Spontaneous Coma Scale Motor: Obeys Commands Movement Coma Scale Verbal: Oriented Coma Scale Total: 15 - Time DISPENSING LEAD Ended Time DISPENSING LEAD Ended: 21:30 - Recommendations Notifications: Attending Physician, Consultations - Respiratory Oxygen Delivery Method: Nasal Cannula @L/min Oxygen Flow Rate: 2
[2018-03-26] MEDS ORDERED: ALTEPLASE IVPB ONE (09:00)
--- NOTE | 2018-03-26 09:19 | CP.PCM.PN ---
Subjective - Date & Time of Evaluation Date of Evaluation: 03/25/18 Time of Evaluation: 13:00 - Subjective Subjective: Patient was seen and evaluated on 03/25/18 Patient could not be transferred for the PCI to [facility] due to the diagnosis of Dementia ([facility]) Contacted Insurance company and pending approval [place] [facility] [place] Patient fully anticoagulated ON IV Heparin, ASA, Plavix, statins and b blockers Hemodynamically stable and chest pain free Advised bed rest Plan d/w the ICU team Will monitor Objective - Vital Signs/Intake and Output Vital Signs (last 24 hours): Temp Pulse Resp BP Pulse Ox 98 F 82 13 123/69 94 L 03/26/18 04:00 03/26/18 06:00 03/26/18 06:00 03/26/18 05:57 03/26/18 06:00 Intake and Output: 03/26/18 03/26/18 06:59 18:59 Intake Total 1702.2 Output Total 1550 Balance 152.2 - Medications Medications: Current Medications Aspirin (Ecotrin) 81 mg PO DAILY [facility] Last Admin: 03/25/18 10:26 Dose: 81 mg Clopidogrel Bisulfate (Plavix) 75 mg PO DAILY [facility] Last Admin: 03/25/18 09:00 Dose: 75 mg Docusate Sodium (Colace) 100 mg PO BID [facility] Last Admin: 03/25/18 18:41 Dose: 100 mg Famotidine (Pepcid) 20 mg IVP Q12 [facility] Last Admin: 03/25/18 21:33 Dose: 20 mg Glipizide (Glucotrol) 10 mg PO ACB [facility] Last Admin: 03/25/18 07:30 Dose: 10 mg Sodium Chloride (Sodium Chloride 0.9%) 1,000 mls @ 80 mls/hr IV .[id number] [facility] Last Admin: 03/25/18 21:33 Dose: 80 mls/hr Heparin Sodium/Sodium Chloride (Heparin 48784 Units/250ml 1/2 Normal Saline) 25,000 units in 250 mls @ 9.302 mls/hr IV .Q24H PRN; Protocol PRN Reason: PROTOCOL Last Admin: 03/25/18 21:33 Dose: 12 units/kg/hr, 9.302 mls/hr Alteplase, Recombinant (Activase 100 Mg Inj) 63 mls @ 63 mls/hr IVPB ONCE ONE Stop: 03/26/18 09:59 Insulin Human Regular (Novolin R) 0 unit SC ACHS [facility]; Protocol Last Admin: 03/25/18 22:14 Dose: Not Given Lamotrigine (Lamictal) 25 mg PO BID [facility] Last Admin: 03/25/18 18:41 Dose: 25 mg Metoprolol Tartrate (Lopressor) 25 mg PO BID [facility] Rosuvastatin Calcium (Crestor) 20 mg PO [facility] Last Admin: 03/25/18 21:33 Dose: 20 mg - Labs Labs: 03/26/18 05:59 03/26/18 05:59 PT 11.4 SECONDS (9.7-12.2) 03/25/18 05:24 INR 1.0 03/25/18 05:24 APTT 57 SECONDS (21-34) H D 03/26/18 05:59
--- NOTE | 2018-03-26 09:24 | CP.PCM.PN ---
Subjective - Date & Time of Evaluation Date of Evaluation: 03/26/18 Time of Evaluation: 09:20 - Subjective Subjective: Patient had cardiac arrest with respiratory failure this morning [facility] protocol activated and intubated for pulmonary edema Prolonged resuscitation unsuccessful Patient pronounced at 8.25am Sister Keiry and brother Landon notified about the events and family consoled Primary attending Dr. Sidhu notified Objective - Vital Signs/Intake and Output Vital Signs (last 24 hours): Temp Pulse Resp BP Pulse Ox 98 F 82 13 123/69 94 L 03/26/18 04:00 03/26/18 06:00 03/26/18 06:00 03/26/18 05:57 03/26/18 06:00 Intake and Output: 03/26/18 03/26/18 06:59 18:59 Intake Total 1702.2 Output Total 1550 Balance 152.2 - Medications Medications: Current Medications Aspirin (Ecotrin) 81 mg PO DAILY [facility] Last Admin: 03/25/18 10:26 Dose: 81 mg Clopidogrel Bisulfate (Plavix) 75 mg PO DAILY [facility] Last Admin: 03/25/18 09:00 Dose: 75 mg Docusate Sodium (Colace) 100 mg PO BID [facility] Last Admin: 03/25/18 18:41 Dose: 100 mg Famotidine (Pepcid) 20 mg IVP Q12 [facility] Last Admin: 03/25/18 21:33 Dose: 20 mg Glipizide (Glucotrol) 10 mg PO ACB [facility] Last Admin: 03/25/18 07:30 Dose: 10 mg Sodium Chloride (Sodium Chloride 0.9%) 1,000 mls @ 80 mls/hr IV .[id number] [facility] Last Admin: 03/25/18 21:33 Dose: 80 mls/hr Heparin Sodium/Sodium Chloride (Heparin 94483 Units/250ml 1/2 Normal Saline) 25,000 units in 250 mls @ 9.302 mls/hr IV .Q24H PRN; Protocol PRN Reason: PROTOCOL Last Admin: 03/25/18 21:33 Dose: 12 units/kg/hr, 9.302 mls/hr Alteplase, Recombinant (Activase 100 Mg Inj) 63 mls @ 63 mls/hr IVPB ONCE ONE Stop: 03/26/18 09:59 Insulin Human Regular (Novolin R) 0 unit SC ACHS [facility]; Protocol Last Admin: 03/25/18 22:14 Dose: Not Given Lamotrigine (Lamictal) 25 mg PO BID [facility] Last Admin: 03/25/18 18:41 Dose: 25 mg Metoprolol Tartrate (Lopressor) 25 mg PO BID [facility] Rosuvastatin Calcium (Crestor) 20 mg PO HS [facility] Last Admin: 03/25/18 21:33 Dose: 20 mg - Labs Labs: 03/26/18 05:59 03/26/18 05:59 PT 11.4 SECONDS (9.7-12.2) 03/25/18 05:24 INR 1.0 03/25/18 05:24 APTT 57 SECONDS (21-34) H D 03/26/18 05:59
--- NOTE | 2018-03-26 10:57 | CP.CCUPN ---
CCU Subjective - Physician Review Subjective (Free Text): 03/26/18 8:30AM PGY1 Critical Care Progress Note for Dr. Prasad While rounding in the ICU, patient developed chest pain and then suddenly passed out. Patient became bradycardic. At that point ROSE MARY JANIA was called in the ICU. Patient was intubated. CPR was initiated. Please refer to the code sheet for more information. Patient did not respond. Patient was pronounced at 08:25AM. Patient seen and evaluated with Daniel Davis PGY1 CCU Objective - Vital Signs / Intake & Output Intake and Output (Last 8hrs): Intake & Output 03/25/18 03/26/18 03/26/18 22:59 06:59 14:59 Intake Total 2215.2 854.6 Output Total 750 1200 Balance 1465.2 -345.4 Weight 172 lb Intake: IV 250 Intake, IV Amount 725.2 804.6 Left Hand 400 Left Proximal Port Hand 47.0 Right Distal Port 28.2 84.6 Right Hand 10 Right Proximal Port Hand 240 720 Oral 1240 50 Output: Urine 750 1200 Urine, Voided 750 1200 Other: # Bowel Movements 0 1 - Physical Exam Head: Positive for: Atraumatic, Normocephalic Pupils: Positive for: PERRL Extroacular Muscles: Positive for: EOMI Conjunctiva: Positive for: Normal Mouth: Positive for: Moist Mucous Membranes Respiratory/Chest: Positive for: Clear to Auscultation Cardiovascular: Positive for: Regular Rate and Rhythm, Normal S1, S2 Abdomen: Positive for: Normal Bowel Sounds. Negative for: Tenderness, Distention Lower Extremity: Positive for: Normal Inspection Neurological: Positive for: GCS=15, CN II-XII Intact, Speech Normal Skin: Positive for: Warm, Dry, Normal Color Psychiatric: Positive for: Alert, Oriented x 3, Normal Insight, Normal Concentration - Medications Active Medications: Active Medications Generic Name Dose Route Start Last Admin Trade Name Freq PRN Reason Stop Dose Admin Aspirin 81 mg 03/22/18 10:00 03/25/18 10:26 Ecotrin PO 81 mg DAILY [facility] Administration Clopidogrel Bisulfate 75 mg 03/22/18 10:00 03/25/18 09:00 Plavix PO 75 mg DAILY [facility] Administration Docusate Sodium 100 mg 03/21/18 18:00 03/25/18 18:41 Colace PO 100 mg BID [facility] Administration Famotidine 20 mg 03/24/18 22:00 03/25/18 21:33 Pepcid IVP 20 mg Q12 [facility] Administration Glipizide 10 mg 03/22/18 07:30 03/25/18 07:30 Glucotrol PO 10 mg ACB [facility] Administration Sodium Chloride 1,000 mls @ 80 mls/hr 03/24/18 18:45 03/25/18 21:33 Sodium Chloride 0.9% IV 80 mls/hr .[id number] [facility] Administration Heparin Sodium/Sodium Chloride 25,000 units in 250 mls @ 9.302 mls/hr 03/24/18 20:24 03/25/18 21:33 Heparin 63459 Units/250ml 1/2 Normal Saline IV 12 units/kg/hr .Q24H PRN 9.302 mls/hr PROTOCOL Administration Protocol 12 UNITS/KG/HR Insulin Human Regular 0 unit 03/21/18 11:30 03/25/18 22:14 Novolin R SC Not Given ACHS [facility] Protocol Lamotrigine 25 mg 03/21/18 18:00 03/25/18 18:41 Lamictal PO 25 mg BID [facility] Administration Metoprolol Tartrate 25 mg 03/25/18 23:09 Lopressor PO BID [facility] Rosuvastatin Calcium 20 mg 03/21/18 22:00 03/25/18 21:33 Crestor PO 20 mg HS [facility] Administration - Patient Studies Lab Studies: Lab Studies 03/26/18 03/26/18 03/26/18 Range/Units 07:56 07:23 05:59 WBC (4.8-10.8) K/uL RBC (4.40-5.90) Mil/uL Hgb (12.0-18.0) g/dL Hct (35.0-51.0) % MCV (80.0-94.0) fL MCH (27.0-31.0) pg MCHC (33.0-37.0) g/dL RDW (11.5-14.5) % Plt Count (130-400) K/uL MPV (7.2-11.7) fL Neut % (Auto) (50.0-75.0) % Lymph % (Auto) (20.0-40.0) % [place] % (Auto) (0.0-10.0) % Eos % (Auto) (0.0-4.0) % Baso % (Auto) (0.0-2.0) % Neut # (Auto) (1.8-7.0) K/uL Lymph # (Auto) (1.0-4.3) K/uL [place] # (Auto) (0.0-0.8) K/uL Eos # (Auto) (0.0-0.7) K/uL Baso # (Auto) (0.0-0.2) K/uL APTT (21-34) SECONDS Sodium 136 (132-148) mmol/L Potassium 4.2 (3.6-5.2) mmol/L Chloride 105 (98-107) mmol/L Carbon Dioxide 25 (22-30) mmol/L Anion Gap 10 (10-20) BUN 14 (9-20) mg/dL Creatinine 0.6 L (0.8-1.5) mg/dL Est GFR ( Amer) > 60 Est GFR (Non-Af Amer) > 60 POC Glucose (mg/dL) 156 H 143 H (65-110) mg/dL Random Glucose 153 H (75-110) mg/dL Calcium 9.0 (8.6-10.4) mg/dl Phosphorus 2.9 (2.5-4.5) mg/dL Magnesium 1.9 (1.6-2.3) mg/dL Total Bilirubin 0.4 (0.2-1.3) mg/dL AST 64 H D (17-59) U/L ALT 99 H (21-72) U/L Alkaline Phosphatase 81 (38-126) U/L Total Protein 7.0 (6.3-8.3) g/dL Albumin 3.8 (3.5-5.0) g/dL Globulin 3.2 (2.2-3.9) gm/dL Albumin/Globulin Ratio 1.2 (1.0-2.1) 03/26/18 03/26/18 03/25/18 Range/Units 05:59 05:59 21:31 WBC 6.3 (4.8-10.8) K/uL RBC 3.63 L (4.40-5.90) Mil/uL Hgb 12.7 (12.0-18.0) g/dL Hct 35.8 (35.0-51.0) % MCV 98.8 H (80.0-94.0) fL MCH 34.9 H (27.0-31.0) pg MCHC 35.4 (33.0-37.0) g/dL RDW 12.8 (11.5-14.5) % Plt Count 205 (130-400) K/uL MPV 9.1 (7.2-11.7) fL Neut % (Auto) 74.9 (50.0-75.0) % Lymph % (Auto) 13.6 L (20.0-40.0) % [place] % (Auto) 9.6 (0.0-10.0) % Eos % (Auto) 1.5 (0.0-4.0) % Baso % (Auto) 0.4 (0.0-2.0) % Neut # (Auto) 4.7 (1.8-7.0) K/uL Lymph # (Auto) 0.9 L (1.0-4.3) K/uL [place] # (Auto) 0.6 (0.0-0.8) K/uL Eos # (Auto) 0.1 (0.0-0.7) K/uL Baso # (Auto) 0.0 (0.0-0.2) K/uL APTT 57 H D (21-34) SECONDS Sodium (132-148) mmol/L Potassium (3.6-5.2) mmol/L Chloride (98-107) mmol/L Carbon Dioxide (22-30) mmol/L Anion Gap (10-20) BUN (9-20) mg/dL Creatinine (0.8-1.5) mg/dL Est GFR ( Amer) Est GFR (Non-Af Amer) POC Glucose (mg/dL) 190 H (65-110) mg/dL Random Glucose (75-110) mg/dL Calcium (8.6-10.4) mg/dl Phosphorus (2.5-4.5) mg/dL Magnesium (1.6-2.3) mg/dL Total Bilirubin (0.2-1.3) mg/dL AST (17-59) U/L ALT (21-72) U/L Alkaline Phosphatase (38-126) U/L Total Protein (6.3-8.3) g/dL Albumin (3.5-5.0) g/dL Globulin (2.2-3.9) gm/dL Albumin/Globulin Ratio (1.0-2.1) 03/25/18 03/25/18 Range/Units 16:10 11:04 WBC (4.8-10.8) K/uL RBC (4.40-5.90) Mil/uL Hgb (12.0-18.0) g/dL Hct (35.0-51.0) % MCV (80.0-94.0) fL MCH (27.0-31.0) pg MCHC (33.0-37.0) g/dL RDW (11.5-14.5) % Plt Count (130-400) K/uL MPV (7.2-11.7) fL Neut % (Auto) (50.0-75.0) % Lymph % (Auto) (20.0-40.0) % [place] % (Auto) (0.0-10.0) % Eos % (Auto) (0.0-4.0) % Baso % (Auto) (0.0-2.0) % Neut # (Auto) (1.8-7.0) K/uL Lymph # (Auto) (1.0-4.3) K/uL [place] # (Auto) (0.0-0.8) K/uL Eos # (Auto) (0.0-0.7) K/uL Baso # (Auto) (0.0-0.2) K/uL APTT (21-34) SECONDS Sodium (132-148) mmol/L Potassium (3.6-5.2) mmol/L Chloride (98-107) mmol/L Carbon Dioxide (22-30) mmol/L Anion Gap (10-20) BUN (9-20) mg/dL Creatinine (0.8-1.5) mg/dL Est GFR ( Amer) Est GFR (Non-Af Amer) POC Glucose (mg/dL) 139 H 239 H (65-110) mg/dL Random Glucose (75-110) mg/dL Calcium (8.6-10.4) mg/dl Phosphorus (2.5-4.5) mg/dL Magnesium (1.6-2.3) mg/dL Total Bilirubin (0.2-1.3) mg/dL AST (17-59) U/L ALT (21-72) U/L Alkaline Phosphatase (38-126) U/L Total Protein (6.3-8.3) g/dL Albumin (3.5-5.0) g/dL Globulin (2.2-3.9) gm/dL Albumin/Globulin Ratio (1.0-2.1) Laboratory Results - last 24 hr 03/25/18 03/25/18 03/25/18 11:04 16:10 21:31 WBC RBC Hgb Hct MCV MCH MCHC RDW Plt Count MPV Neut % (Auto) Lymph % (Auto) [place] % (Auto) Eos % (Auto) Baso % (Auto) Neut # (Auto) Lymph # (Auto) [place] # (Auto) Eos # (Auto) Baso # (Auto) APTT Sodium Potassium Chloride Carbon Dioxide Anion Gap BUN Creatinine Est GFR ( Amer) Est GFR (Non-Af Amer) POC Glucose (mg/dL) 239 H 139 H 190 H Random Glucose Calcium Phosphorus Magnesium Total Bilirubin AST ALT Alkaline Phosphatase Total Protein Albumin Globulin Albumin/Globulin Ratio 03/26/18 03/26/18 03/26/18 05:59 05:59 05:59 WBC 6.3 RBC 3.63 L Hgb 12.7 Hct 35.8 MCV 98.8 H MCH 34.9 H MCHC 35.4 RDW 12.8 Plt Count 205 MPV 9.1 Neut % (Auto) 74.9 Lymph % (Auto) 13.6 L [place] % (Auto) 9.6 Eos % (Auto) 1.5 Baso % (Auto) 0.4 Neut # (Auto) 4.7 Lymph # (Auto) 0.9 L [place] # (Auto) 0.6 Eos # (Auto) 0.1 Baso # (Auto) 0.0 APTT 57 H D Sodium 136 Potassium 4.2 Chloride 105 Carbon Dioxide 25 Anion Gap 10 BUN 14 Creatinine 0.6 L Est GFR ( Amer) > 60 Est GFR (Non-Af Amer) > 60 POC Glucose (mg/dL) Random Glucose 153 H Calcium 9.0 Phosphorus 2.9 Magnesium 1.9 Total Bilirubin 0.4 AST 64 H D ALT 99 H Alkaline Phosphatase 81 Total Protein 7.0 Albumin 3.8 Globulin 3.2 Albumin/Globulin Ratio 1.2 03/26/18 03/26/18 07:23 07:56 WBC RBC Hgb Hct MCV MCH MCHC RDW Plt Count MPV Neut % (Auto) Lymph % (Auto) [place] % (Auto) Eos % (Auto) Baso % (Auto) Neut # (Auto) Lymph # (Auto) [place] # (Auto) Eos # (Auto) Baso # (Auto) APTT Sodium Potassium Chloride Carbon Dioxide Anion Gap BUN Creatinine Est GFR ( Amer) Est GFR (Non-Af Amer) POC Glucose (mg/dL) 143 H 156 H Random Glucose Calcium Phosphorus Magnesium Total Bilirubin AST ALT Alkaline Phosphatase Total Protein Albumin Globulin Albumin/Globulin Ratio Fingerstick Blood Sugar Results: 139 Critical Care Progress Note - Nutrition Nutrition: Nutrition Category Date Time Status Heart Healthy Diet [DIET] Diets 03/25/18 Breakfast Active
--- NOTE | 2018-03-26 11:06 | PCM.RRT ---
ASSURANCE ASSOCIATE Nurses Assessment - Situation Date: 03/26/18 Time ASSURANCE ASSOCIATE was called: 07:30 ASSURANCE ASSOCIATE Responder Arrival Time:: 07:30 ASSURANCE ASSOCIATE Location:: ICU Room Number: ICU Bed #1 ASSURANCE ASSOCIATE Reason for Call: Chest Pain, Bradycardia ASSURANCE ASSOCIATE Called By: RN - IV IV Inserted during ASSURANCE ASSOCIATE?: No - Respiratory ASSURANCE ASSOCIATE Delivery Method: Intubated Oxygen Flow Rate: 2 Was the Patient Intubated?: No - Medication Medications Administered During ASSURANCE ASSOCIATE: none CPR started during ASSURANCE ASSOCIATE?: Yes - José Miguel Coma Scale Coma Scale Eye Opening: No response Coma Scale Verbal: No response - Time ASSURANCE ASSOCIATE Ended Time ASSURANCE ASSOCIATE Ended: 08:25 - Recommendations Notifications: Consultations, Family or Designated Caregiver I.Reason for ASSURANCE ASSOCIATE - A) Acute Change in Patient: Subjective: While rounding in the ICU, patient developed chest pain and then suddenly passed out. Patient became bradycardic. At 07:30 ROSE MARY DYKES was called in the ICU. Dr. Medeiros was notified. Family was notified. Patient was intubated. CPR was initiated. Epi was administered (total of 11 rounds) Patient was shocked (total of 6 shocks) Amiodorone was administered once Magnesium was administered once Lidocaine was administered once At 08:01 TPA 10mg was administered. Patient did not respond. Patient was pronounced at 08:25AM. Family has been notified. Please refer to the code sheet for more information. Patient seen and evaluated with Dr. Osmar Shah PGY1 - Respiratory Oxygen Delivery Method: Intubated Oxygen Flow Rate: 2 - Constitutional Additional Comments: Patient at 08:25AM
--- NOTE | 2018-03-26 21:16 | CP.PCM.DIS ---
Provider - Provider Date of Admission: 03/21/18 19:20 Attending physician: Patricio Sidhu MD Hospital Course - Lab Results Lab Results: Micro Results 03/21/18 Unknown Nose MRSA Culture (Admit) - Final MRSA NOT DETECTED Most Recent Lab Values WBC 6.3 K/uL (4.8-10.8) 03/26/18 05:59 RBC 3.63 Mil/uL (4.40-5.90) L 03/26/18 05:59 Hgb 12.7 g/dL (12.0-18.0) 03/26/18 05:59 Hct 35.8 % (35.0-51.0) 03/26/18 05:59 MCV 98.8 fL (80.0-94.0) H 03/26/18 05:59 MCH 34.9 pg (27.0-31.0) H 03/26/18 05:59 MCHC 35.4 g/dL (33.0-37.0) 03/26/18 05:59 RDW 12.8 % (11.5-14.5) 03/26/18 05:59 Plt Count 205 K/uL (130-400) 03/26/18 05:59 MPV 9.1 fL (7.2-11.7) 03/26/18 05:59 Neut % (Auto) 74.9 % (50.0-75.0) 03/26/18 05:59 Lymph % (Auto) 13.6 % (20.0-40.0) L 03/26/18 05:59 [place] % (Auto) 9.6 % (0.0-10.0) 03/26/18 05:59 Eos % (Auto) 1.5 % (0.0-4.0) 03/26/18 05:59 Baso % (Auto) 0.4 % (0.0-2.0) 03/26/18 05:59 Neut # (Auto) 4.7 K/uL (1.8-7.0) 03/26/18 05:59 Lymph # (Auto) 0.9 K/uL (1.0-4.3) L 03/26/18 05:59 [place] # (Auto) 0.6 K/uL (0.0-0.8) 03/26/18 05:59 Eos # (Auto) 0.1 K/uL (0.0-0.7) 03/26/18 05:59 Baso # (Auto) 0.0 K/uL (0.0-0.2) 03/26/18 05:59 PT 11.4 SECONDS (9.7-12.2) 03/25/18 05:24 INR 1.0 03/25/18 05:24 APTT 57 SECONDS (21-34) H D 03/26/18 05:59 Sodium 136 mmol/L (132-148) 03/26/18 05:59 Potassium 4.2 mmol/L (3.6-5.2) 03/26/18 05:59 Chloride 105 mmol/L (98-107) 03/26/18 05:59 Carbon Dioxide 25 mmol/L (22-30) 03/26/18 05:59 Anion Gap 10 (10-20) 03/26/18 05:59 BUN 14 mg/dL (9-20) 03/26/18 05:59 Creatinine 0.6 mg/dL (0.8-1.5) L 03/26/18 05:59 Est GFR ( Amer) > 60 03/26/18 05:59 Est GFR (Non-Af Amer) > 60 03/26/18 05:59 POC Glucose (mg/dL) 156 mg/dL (65-110) H 03/26/18 07:56 Random Glucose 153 mg/dL (75-110) H 03/26/18 05:59 Hemoglobin A1c 6.6 % (4.2-6.5) H 03/21/18 12:14 Calcium 9.0 mg/dl (8.6-10.4) 03/26/18 05:59 Phosphorus 2.9 mg/dL (2.5-4.5) 03/26/18 05:59 Magnesium 1.9 mg/dL (1.6-2.3) 03/26/18 05:59 Total Bilirubin 0.4 mg/dL (0.2-1.3) 03/26/18 05:59 AST 64 U/L (17-59) H D 03/26/18 05:59 ALT 99 U/L (21-72) H 03/26/18 05:59 Alkaline Phosphatase 81 U/L (38-126) 03/26/18 05:59 Total Creatine Kinase 326 U/L (55-170) H 03/22/18 05:59 CK-MB (Mass) 21.4 ng/mL (0.0-3.38) H 03/22/18 05:59 Troponin I 3.8300 ng/mL (0.00-0.120) H* 03/23/18 08:24 NT-Pro-B Natriuret Pep 298 pg/mL (0-900) 03/21/18 07:00 Total Protein 7.0 g/dL (6.3-8.3) 03/26/18 05:59 Albumin 3.8 g/dL (3.5-5.0) 03/26/18 05:59 Globulin 3.2 gm/dL (2.2-3.9) 03/26/18 05:59 Albumin/Globulin Ratio 1.2 (1.0-2.1) 03/26/18 05:59 Triglycerides 248 mg/dL (0-149) H 03/21/18 12:14 Cholesterol 235 mg/dL (0-199) H 03/21/18 12:14 LDL Cholesterol Direct 154 mg/dL (0-129) H 03/21/18 12:14 HDL Cholesterol 56 mg/dL (30-70) 03/21/18 12:14 Alcohol, Quantitative < 10 mg/dl (0-10) 03/21/18 07:00 Discharge Exam - Head Exam Head Exam: ATRAUMATIC, NORMOCEPHALIC Discharge Plan - Follow Up Plan Condition: GOOD Disposition: WITH WITHOUT AUTOPSY
--- NOTE | 2018-03-27 08:20 | DS ---
DISCHARGE DIAGNOSES: 1. Coronary artery disease. 2. Hypertension. 3. Hyperlipidemia. HISTORY OF PRESENT ILLNESS: This is a 62-year-old male, who was admitted because of chest pain. He has prior history of diabetes, hypertension, and hyperlipidemia. He was having recurrent chest pain at home. He did not seek medical attention up until the date of admission. He was admitted with chest pain. [place] was ruled in with positive enzymes. The patient underwent cardiac catheterization with two vessel severe disease, and he was awaiting for angioplasty, and this morning, he developed cardiac arrest and he could not be revived and he . PHYSICAL EXAMINATION: VITAL SIGNS: Blood pressure 123/69, pulse 82, respiratory rate 30, temperature 98. LABORATORY DATA: WBC 3.3, hemoglobin 12.5, hematocrit 35.8, platelets 205. ____ 57. Sodium 133, potassium 4.2, chloride 105, bicarbonate 25, BUN 14, creatinine 0.6. The patient's family was there, the patient . Patricio Sidhu MD
--- NOTE | 2018-03-27 17:26 | CARD ---
APPROVED REPORT Date of service: 03/21/2018 EKG Measurement Heart [id number] <Conclusion> Normal sinus rhythm Normal ECG
--- NOTE | 2018-03-27 17:37 | CARD ---
APPROVED REPORT Date of service: 03/21/2018 EKG Measurement Heart [id number] <Conclusion> Normal sinus rhythm Normal ECG
--- NOTE | 2018-03-27 17:46 | CARD ---
APPROVED REPORT Date of service: 03/21/2018 EKG Measurement Heart [id number] <Conclusion> Normal sinus rhythm Normal ECG
== END 2018-03-26 08:25 ==
LOC: C.ER 06:15 → C.9E 08:10 → C.5S 10:37 → OBSVTOIN 19:20 → C.9I 22:17
PROVIDERS: ADMIT Internal Medicine; ATTEND Internal Medicine
PROC: 4A023N7 Measurement of Cardiac Sampling and Pressure, Left Heart, Percutaneous Approach (ICD-10-PCS; 2018-03-24)
PROC: B2111ZZ Fluoroscopy of Multiple Coronary Arteries using Low Osmolar Contrast (ICD-10-PCS; 2018-03-24)
PROC: B2151ZZ Fluoroscopy of Left Heart using Low Osmolar Contrast (ICD-10-PCS; 2018-03-24)
PROC: 0BH17EZ Insertion of Endotracheal Airway into Trachea, Via Natural or Artificial Opening (ICD-10-PCS; principal; 2018-03-26)
DX: I21.4 Non-ST elevation (NSTEMI) myocardial infarction (principal); J96.90 Respiratory failure, unspecified, unspecified whether with hypoxia or hypercapnia; G91.2 (Idiopathic) normal pressure hydrocephalus; E11.22 Type 2 diabetes mellitus with diabetic chronic kidney disease; E78.00 Pure hypercholesterolemia, unspecified; E78.5 Hyperlipidemia, unspecified; I25.10 Atherosclerotic heart disease of native coronary artery without angina pectoris; I46.9 Cardiac arrest, cause unspecified; F03.90 Unspecified dementia, unspecified severity, without behavioral disturbance, psychotic disturbance, mood disturbance, and anxiety; I12.9 Hypertensive chronic kidney disease with stage 1 through stage 4 chronic kidney disease, or unspecified chronic kidney disease; Z98.2 Presence of cerebrospinal fluid drainage device; R56.9 Unspecified convulsions; N18.9 Chronic kidney disease, unspecified